=== PATIENT | female | born 1980 | race Caucasian/White ===

== ENCOUNTER 2016-10-21 10:47 | Emergency (ER) | payer MEDICAID ==
--- NOTE | 2016-10-21 11:11 | ER Document Report ---
ED Medical Screen (RME) - General Chief Complaint: Abdominal Pain Stated Complaint: ABDOMINAL PAIN Notes: Recurrent right upper quadrant abdominal pain previously worked up extensively. TRAVEL OUTSIDE OF THE [place] IN LAST 30 DAYS: No - Related Data Allergies/Adverse Reactions: tramadol [Tramadol] Allergy (Severe, Verified 10/21/16 10:54) Anaphylaxis ketorolac tromethamine [From Toradol] Allergy (Mild, Verified 10/21/16 10:54) BREASK OUT IN RASH Past Medical History - Past Medical History Cardiac Medical History: Denies: Hx Coronary Artery Disease, Hx Heart Attack, Hx Hypertension Pulmonary Medical History: Denies: Hx Asthma, Hx Bronchitis, Hx COPD, Hx Pneumonia Neurological Medical History: Denies: Hx Cerebrovascular Accident, Hx Seizures Renal/ Medical History: Reports: Hx Kidney Stones. Denies: Hx Peritoneal Dialysis Musculoskeltal Medical History: Reports Hx Arthritis Psychiatric Medical History: Reports: Hx Anxiety, Hx Attention Deficit Hyperactivity Disorder, Hx Bipolar Disorder, Hx Depression, Hx Schizophrenia Past Surgical History: Reports: Hx Appendectomy, Hx Dilation and Curettage, Hx Gynecologic Surgery - D & C. Denies: Hx Cholecystectomy, Hx Hysterectomy - Immunizations Hx Diphtheria, Pertussis, Tetanus Vaccination: Yes Physical Exam - Vital signs Vitals: Temp Pulse Resp BP Pulse Ox 98.6 F 135 H 20 134/80 H 100 10/21/16 10:50 10/21/16 10:50 10/21/16 10:50 10/21/16 10:50 10/21/16 10:50 Course - Vital Signs Vital signs: Temp Pulse Resp BP Pulse Ox 98.6 F 135 H 20 134/80 H 100 10/21/16 10:50 10/21/16 10:50 10/21/16 10:50 10/21/16 10:50 10/21/16 10:50
[2016-10-21] MEDS ORDERED: ONDANSETRON HCL INJ/PF 4 MG/2 ML SDV IV ONE (11:20)
[2016-10-21] MEDS ORDERED: NORMAL SALINE 1000 ML 1,000 ML IV PRN ×3 (11:20→17:06)
--- NOTE | 2016-10-21 11:23 | ER Document Report ---
ED GI/ - General Chief Complaint: Abdominal Pain Stated Complaint: ABDOMINAL PAIN Time seen by provider: 11:21 Mode of Arrival: Ambulatory Information source: Patient TRAVEL OUTSIDE OF THE [place] IN LAST 30 DAYS: No - HPI Patient complains to provider of: Abdominal pain, Vomiting Onset: Last week Timing/Duration: Gradual, Persistent Quality of pain: Achy Severity at maximum: Moderate Severity in ED: Moderate Pain Level: 4 Location: Epigastric, RUQ Vaginal bleeding (Compared to normal period): None Associated symptoms: Diarrhea, Hematuria, Nausea, Vomiting Exacerbated by: Denies Relieved by: Denies Similar symptoms previously: Yes Recently seen / treated by doctor: No Notes: 10/21/16 11:21 Patient is a 36-year-old female with a history of hepatitis C as well as a history of gallbladder sludge who presents to the emergency room complaining of right upper quadrant pain with nausea vomiting and diarrhea that's been going on for the past week, she denies any blood in her stools or vomit, states it is generally brownish in color or bilious, she reports that eating worsens her symptoms, although she is able to tolerate clear liquids, she reports one episode of hematuria last night, denies any sick contacts, has a history of appendectomy and D&C in the past, denies being today - Related Data Allergies/Adverse Reactions: tramadol [Tramadol] Allergy (Severe, Verified 10/21/16 12:08) Anaphylaxis ketorolac tromethamine [From Toradol] Allergy (Mild, Verified 10/21/16 12:08) BREASK OUT IN RASH Past Medical History - General Information source: Patient - Social History Smoking Status: Current Every Day Smoker Family History: Reviewed & Not Pertinent Patient has suicidal ideation: No Patient has homicidal ideation: No - Past Medical History Cardiac Medical History: Denies: Hx Coronary Artery Disease, Hx Heart Attack, Hx Hypertension Pulmonary Medical History: Denies: Hx Asthma, Hx Bronchitis, Hx COPD, Hx Pneumonia Neurological Medical History: Denies: Hx Cerebrovascular Accident, Hx Seizures Renal/ Medical History: Reports: Hx Kidney Stones. Denies: Hx Peritoneal Dialysis Musculoskeltal Medical History: Reports Hx Arthritis Psychiatric Medical History: Reports: Hx Anxiety, Hx Attention Deficit Hyperactivity Disorder, Hx Bipolar Disorder, Hx Depression, Hx Schizophrenia Past Surgical History: Reports: Hx Appendectomy, Hx Dilation and Curettage, Hx Gynecologic Surgery - D & C. Denies: Hx Cholecystectomy, Hx Hysterectomy - Immunizations Hx Diphtheria, Pertussis, Tetanus Vaccination: Yes Review of Systems - Review of Systems Constitutional: No symptoms reported EENT: No symptoms reported Cardiovascular: No symptoms reported Respiratory: No symptoms reported Gastrointestinal: See HPI Genitourinary: See HPI Female Genitourinary: No symptoms reported Musculoskeletal: No symptoms reported Skin: No symptoms reported Hematologic/Lymphatic: No symptoms reported Neurological/Psychological: No symptoms reported -: Yes All other systems reviewed and negative Physical Exam - Vital signs Vitals: Temp Pulse Resp BP Pulse Ox 98.6 F 135 H 20 134/80 H 100 10/21/16 10:50 10/21/16 10:50 10/21/16 10:50 10/21/16 10:50 10/21/16 10:50 Interpretation: Tachycardic - General General appearance: Appears well, Alert - HEENT Head: Normocephalic, Atraumatic Eyes: Normal Pupils: PERRL - Respiratory Respiratory status: No respiratory distress Chest status: Nontender Breath sounds: Normal Chest palpation: Normal - Cardiovascular Rhythm: Regular Heart sounds: Normal auscultation Murmur: No - Abdominal Inspection: Obese Distension: No distension Bowel sounds: Normal Tenderness: Tender - Right upper quadrant Organomegaly: No organomegaly - Back Back: Normal, Nontender - Extremities General upper extremity: Normal inspection, Nontender, Normal color, Normal ROM , Normal temperature General lower extremity: Normal inspection, Nontender, Normal color, Normal ROM , Normal temperature, Normal weight bearing. No: Nini's sign - Neurological Neuro grossly intact: Yes Cognition: Normal Orientation: AAOx4 Mears Coma Scale Eye Opening: Spontaneous Carlos Coma Scale Verbal: Oriented Carlos Coma Scale Motor: Obeys Commands Mears Coma Scale Total: 15 Speech: Normal Motor strength normal: LUE, RUE, LLE, RLE Sensory: Normal - Psychological Associated symptoms: Normal affect, Normal mood - Skin Skin Temperature: Warm Skin Moisture: Dry Skin Color: Normal Course - Re-evaluation Re-evalutation: 10/21/16 18:10 Patient resting comfortably on stretcher, reports feeling much better, pain is resolved, she does remain mildly tachycardic, however she takes Adderall and has not taken her normal doses of Xanax today, lab and imaging findings were discussed with patient at bedside which are unremarkable, patient will be discharged with pain medication and information for follow-up, advised to return if symptoms worsen, patient acknowledges understanding and agreement with this plan - Vital Signs Vital signs: Temp Pulse Resp BP Pulse Ox 98.6 F 135 H 16 108/74 98 10/21/16 10:50 10/21/16 10:50 10/21/16 15:01 10/21/16 15:01 10/21/16 15:01 - Laboratory Result Diagrams: 10/21/16 11:50 10/21/16 11:50 Laboratory results interpreted by me: 10/21/16 10/21/16 11:50 11:50 Eosinophils % 6.2 H BUN 5 L - Diagnostic Test Radiology reviewed: Image reviewed, Reports reviewed Discharge - Discharge Clinical Impression: Abdominal pain Qualifiers: Abdominal location: right upper quadrant Qualified Code(s): R10.11 - Right upper quadrant pain Condition: Stable Disposition: HOME, SELF-CARE Instructions: Abdominal Pain ([facility]), Oral Narcotic Medication ([facility]) Additional Instructions: Follow up with your primary care provider in one to 2 days. Return to the emergency room immediately if symptoms worsen or any additional concerns. Prescriptions: Oxycodone HCl 5 mg PO Q6 #14 capsule
[2016-10-21 12:02] LABS: ABSOLUTE BASOPHILS # (AUTO) 0.1 10^3/uL (0.0-0.2); ABSOLUTE EOSINOPHILS # (AUTO) 0.6 10^3/uL (0.0-0.6); ABSOLUTE LYMPHOCYTES (AUTO) 2.4 10^3/uL (0.5-4.7); ABSOLUTE MONOCYTES (AUTO) 0.6 10^3/uL (0.1-1.4); ABSOLUTE NEUT (AUTO) 5.8 10^3/uL (1.7-8.2); BASOPHILS % (AUTO) 0.9 % (0-2); EOSINOPHILS % (AUTO) 6.2 % (0-6); HEMATOCRIT 41.4 % (36.0-47.0); HEMOGLOBIN 13.9 g/dL (12.0-15.5); HGB HCT DIFFERENCE 0.3; LYMPHOCYTES % (AUTO) 25.6 % (13-45); MEAN CORPUSCULAR HEMOGLOBIN 28.6 pg (27.0-33.4); MEAN CORPUSCULAR HGB CONC 33.7 g/dL (32.0-36.0); MEAN CORPUSCULAR VOLUME 85 fl (80-97); MONOCYTES % (AUTO) 6.1 % (3-13); RED BLOOD COUNT 4.88 10^6/uL (3.72-5.28); SEGMENTED NEUTROPHILS % (AUTO) 61.2 % (42-78); WHITE BLOOD COUNT 9.5 10^3/uL (4.0-10.5)
[2016-10-21 12:19] LABS: ALANINE AMINOTRANSFERASE 28 U/L (9-52); ALBUMIN 4.2 g/dL (3.5-5.0); ALKALINE PHOSPHATASE 90 U/L (38-126); ANION GAP 11 (5-19); ASPARTATE AMINO TRANSFERASE 26 U/L (14-36); BILIRUBIN,DIRECT 0.1 mg/dL (0.0-0.4); BILIRUBIN,TOTAL 0.5 mg/dL (0.2-1.3); BLOOD UREA NITROGEN 5 mg/dL (7-20); CALCIUM 9.7 mg/dL (8.4-10.2); CARBON DIOXIDE 27 mmol/L (22-30); CHLORIDE 102 mmol/L (98-107); CREATININE RESULT 0.72 mg/dL (0.52-1.25); GLUCOSE 84 mg/dL (75-110); LIPASE 63.7 U/L (23-300); POTASSIUM 4.3 mmol/L (3.6-5.0); SODIUM 140.4 mmol/L (137-145); TOTAL PROTEIN 7.4 g/dL (6.3-8.2)
[2016-10-21] MEDS ORDERED: MORPHINE SULFATE 10 MG/ML INJ IV ONE ×2 (12:50→15:47)
[2016-10-21 13:13] LABS: APPEARANCE,URINE SLIGHTLY-CLOUDY; BILIRUBIN,URINE NEGATIVE (NEGATIVE); GLUCOSE, URINE NEGATIVE (NEGATIVE); KETONES,URINE NEGATIVE (NEGATIVE); LEUKOCYTE ESTERASE,URINE NEGATIVE (NEGATIVE); NITRITE,URINE NEGATIVE (NEGATIVE); PROTEIN,URINE NEGATIVE (NEGATIVE); URINE SPECIFIC GRAVITY 1.005; UROBILINOGEN,URINE NEGATIVE mg/dL (<2.0)
[2016-10-21] MEDS ORDERED: LORAZEPAM INJ 2 MG/1 ML VIAL IV ONE (14:16)
[2016-10-21] MEDS ORDERED: HYDROMORPHONE HCL INJ/PF 2 MG/ML AMPULE IV ONE (17:06)
[2016-10-21] MEDS ORDERED: ALPRAZOLAM 0.5 MG TABLET PO ONE (17:23)
[2016-10-21] MEDS ORDERED: ONDANSETRON ODT 4 MG TAB (6 TAB/DSPK) PO PRN (18:12)
[2016-10-21 18:33] VITALS: BP 112/84
== END 2016-10-21 18:34 | disposition home or self-care (01) ==
LOC: ER 10:47
DX: R10.11 Right upper quadrant pain (principal); R11.2 Nausea with vomiting, unspecified; R19.7 Diarrhea, unspecified; R31.9 Hematuria, unspecified; E66.9 Obesity, unspecified; Z87.442 Personal history of urinary calculi
CPT/HCPCS: 96376; 99284; 96361; 96374; 96375; 36415; 83690; 85025; 81025; 80053; 81001; 76705; J3490; J2270; J1170; J2060; J2405; J7030

== ENCOUNTER → 2016-10-24 | Outpatient (CLI) | payer MEDICAID ==
[2016-10-29 07:42] LABS: HCV ALPHA 2-MACROGLOBULINS QNT 277 mg/dL (110-276); HCV FIBROSIS SCORE 0.04 (0.00-0.21); HCV FIBROSURE ALT P5P 28 IU/L (0-40); HCV FIBROSURE GGT 9 IU/L (0-60); HCV FIBROSURE HAPTOGLOBIN 201 mg/dL (34-200); HCVFIB APOLIPOPROTEIN A-1 130 mg/dL (116-209); NECROINFLAM ACTIVITY GRADE A0-No activity (.); NECROINFLAMM ACTIVITY SCORE 0.09 (0.00-0.17)
== END ==
LOC: OD 09:29
PROVIDERS: ATTEND Internal Medicine Gastroenterology
DX: B18.2 Chronic viral hepatitis C (principal)
CPT/HCPCS: 36415; 82172; 82247; 82977; 83010; 83883; 84460; 87522

== ENCOUNTER → 2016-11-11 | Outpatient (CLI) | payer MEDICAID | LOC: RAD 07:04 | PROVIDERS: ATTEND Internal Medicine Gastroenterology | DX: R10.11 Right upper quadrant pain (principal) | CPT/HCPCS: 78227; A9537; Q9969; J2805 ==

== ENCOUNTER 2016-11-24 16:42 | Emergency (ER) | payer MEDICAID ==
[2016-11-24 19:20] LABS: APPEARANCE,URINE CLEAR; BILIRUBIN,URINE NEGATIVE (NEGATIVE); GLUCOSE, URINE NEGATIVE (NEGATIVE); KETONES,URINE NEGATIVE (NEGATIVE); LEUKOCYTE ESTERASE,URINE NEGATIVE (NEGATIVE); NITRITE,URINE NEGATIVE (NEGATIVE); PROTEIN,URINE NEGATIVE (NEGATIVE); URINE SPECIFIC GRAVITY 1.012; UROBILINOGEN,URINE NEGATIVE mg/dL (<2.0)
[2016-11-24] MEDS ORDERED: ONDANSETRON 4 MG TAB.RAPDIS PO ONE (19:21)
[2016-11-24 19:40] LABS: ABSOLUTE BASOPHILS # (AUTO) 0.1 10^3/uL (0.0-0.2); ABSOLUTE EOSINOPHILS # (AUTO) 0.1 10^3/uL (0.0-0.6); ABSOLUTE MONOCYTES (AUTO) 0.5 10^3/uL (0.1-1.4); ABSOLUTE NEUT (AUTO) 4.4 10^3/uL (1.7-8.2); BASOPHILS % (AUTO) 0.8 % (0-2); EOSINOPHILS % (AUTO) 1.4 % (0-6); HEMATOCRIT 40.3 % (36.0-47.0); HEMOGLOBIN 13.3 g/dL (12.0-15.5); HGB HCT DIFFERENCE -0.4; LYMPHOCYTES % (AUTO) 37.5 % (13-45); MEAN CORPUSCULAR HEMOGLOBIN 28.2 pg (27.0-33.4); MEAN CORPUSCULAR VOLUME 85 fl (80-97); MONOCYTES % (AUTO) 6.6 % (3-13); RED BLOOD COUNT 4.73 10^6/uL (3.72-5.28); RED CELL DISTRIBUTION WIDTH 14.1 % (11.5-14.0); SEGMENTED NEUTROPHILS % (AUTO) 53.7 % (42-78); WHITE BLOOD COUNT 8.1 10^3/uL (4.0-10.5)
[2016-11-24] MEDS ORDERED: OXYCODONE HCL IR 5 MG TABLET PO ONE (19:47)
[2016-11-24 19:55] LABS: ALANINE AMINOTRANSFERASE 26 U/L (9-52); ALBUMIN 3.9 g/dL (3.5-5.0); ALKALINE PHOSPHATASE 72 U/L (38-126); ANION GAP 11 (5-19); ASPARTATE AMINO TRANSFERASE 22 U/L (14-36); BILIRUBIN,DIRECT 0.3 mg/dL (0.0-0.4); BILIRUBIN,TOTAL 0.3 mg/dL (0.2-1.3); BLOOD UREA NITROGEN 13 mg/dL (7-20); CALCIUM 9.5 mg/dL (8.4-10.2); CARBON DIOXIDE 25 mmol/L (22-30); CHLORIDE 105 mmol/L (98-107); CREATININE RESULT 0.83 mg/dL (0.52-1.25); GLUCOSE 96 mg/dL (75-110); LIPASE 92.7 U/L (23-300); POTASSIUM 4.5 mmol/L (3.6-5.0); SODIUM 141.1 mmol/L (137-145)
--- NOTE | 2016-11-24 20:08 | ER Document Report ---
ED GI/ - General Chief Complaint: Abdominal Pain Stated Complaint: ABDOMINAL PAIN Time Seen by Provider: 11/24/16 19:17 Notes: The patient is a 36-year-old female presents with several weeks of right upper quadrant abdominal pain, worsening over the past day. She is following with her GI doctor and has had a negative HIDA scan 2 weeks ago. She is also having nausea. Denies vomiting, diarrhea, constipation, back pain, or urinalysis TRAVEL OUTSIDE OF THE [place] IN LAST 30 DAYS: No - Related Data Allergies/Adverse Reactions: tramadol [Tramadol] Allergy (Severe, Verified 11/24/16 16:50) Anaphylaxis ketorolac tromethamine [From Toradol] Allergy (Mild, Verified 11/24/16 16:50) BREASK OUT IN RASH Past Medical History - General Information source: Patient - Social History Smoking Status: Unknown if Ever Smoked Family History: Reviewed & Not Pertinent Patient has suicidal ideation: No Patient has homicidal ideation: No - Past Medical History Cardiac Medical History: Denies: Hx Coronary Artery Disease, Hx Heart Attack, Hx Hypertension Pulmonary Medical History: Denies: Hx Asthma, Hx Bronchitis, Hx COPD, Hx Pneumonia Neurological Medical History: Denies: Hx Cerebrovascular Accident, Hx Seizures Renal/ Medical History: Reports: Hx Kidney Stones. Denies: Hx Peritoneal Dialysis Musculoskeltal Medical History: Reports Hx Arthritis Psychiatric Medical History: Reports: Hx Anxiety, Hx Attention Deficit Hyperactivity Disorder, Hx Bipolar Disorder, Hx Depression, Hx Schizophrenia Past Surgical History: Reports: Hx Appendectomy, Hx Dilation and Curettage, Hx Gynecologic Surgery - D & C. Denies: Hx Cholecystectomy, Hx Hysterectomy - Immunizations Hx Diphtheria, Pertussis, Tetanus Vaccination: Yes Review of Systems - Review of Systems Notes: REVIEW OF SYSTEMS: CONSTITUTIONAL: -fevers, -chills EENT: -eye pain, -difficulty swallowing, -nasal congestion CARDIOVASCULAR:-chest pain, -syncope. RESPIRATORY: -cough, -SOB GASTROINTESTINAL: +abdominal pain, +nausea, -vomiting, -diarrhea GENITOURINARY: -dysuria, -hematuria MUSCULOSKELETAL: -back pain, -neck pain SKIN: -rash or skin lesions. HEMATOLOGIC: -easy bruising or bleeding. LYMPHATIC: -swollen, enlarged glands. NEUROLOGICAL: -altered mental status or loss of consciousness, -headache, - neurologic symptoms PSYCHIATRIC: -anxiety, -depression. ALL OTHER SYSTEMS REVIEWED AND NEGATIVE. Physical Exam - Vital signs Vitals: Temp Pulse Resp BP Pulse Ox 97.8 F 89 16 106/67 100 11/24/16 16:50 11/24/16 16:50 11/24/16 16:50 11/24/16 16:50 11/24/16 16:50 - Notes Notes: PHYSICAL EXAMINATION: GENERAL: Well-appearing, well-nourished and in no acute distress. HEAD: Atraumatic, normocephalic. EYES: Pupils equal round and reactive to light, extraocular movements intact, sclera anicteric, conjunctiva are normal. ENT: nares patent, oropharynx clear without exudates. Moist mucous membranes. NECK: Normal range of motion, supple without lymphadenopathy LUNGS: Breath sounds clear to auscultation bilaterally and equal. No wheezes rales or rhonchi. HEART: Regular rate and rhythm without murmurs ABDOMEN: Soft, mild RUQ tenderness, normoactive bowel sounds. No guarding, no rebound. No masses appreciated. EXTREMITIES: Normal range of motion, no pitting or edema. No cyanosis. NEUROLOGICAL: Cranial nerves grossly intact. Normal speech, normal gait. Normal sensory and motor exams. PSYCH: Normal mood, normal affect. SKIN: Warm, Dry, normal turgor, no rashes or lesions noted. Course - Re-evaluation Re-evalutation: Patient's ultrasound and labs do not show any acute abnormalities, including no evidence of cholecystitis or cholelithiasis. Her HIDA scan 2 weeks ago did not show any concerning abnormalities. Suspect a chronic pain issue. She is already following with GI. Will also provide her with surgery f/u. Requesting narcotics, but told her that since this is a chronic issue, narcotics cannot be prescribed from the emergency room. - Vital Signs Vital signs: Temp Pulse Resp BP Pulse Ox 97.8 F 89 16 106/67 100 11/24/16 16:50 11/24/16 16:50 11/24/16 16:50 11/24/16 16:50 11/24/16 16:50 - Laboratory Result Diagrams: 11/24/16 19:25 11/24/16 19:25 Laboratory results interpreted by me: 11/24/16 19:25 RDW 14.1 H - Diagnostic Test Radiology reviewed: Image reviewed, Reports reviewed Radiology results interpreted by me: RUQ US: NAD Discharge - Discharge Clinical Impression: Right upper quadrant abdominal pain Condition: Good Disposition: HOME, SELF-CARE Additional Instructions: ABDOMINAL PAIN: There are many causes of abdominal pain. Pain can mean a serious problem requiring surgery (such as appendicitis). It can also be an innocent problem that goes away on its own (such as a viral infection). Often, time must pass to determine the cause of pain. The physician does not feel that hospitalization is necessary, at present. Things may change within the next 24 hours. Call the doctor or come back for re- examination if any problems occur, such as: (1) Pain that becomes more severe, steady, or becomes concentrated in one specific area. Also, pain that is more severe with movement or coughing. (2) Vomiting that persists or becomes more frequent. (3) Blood in the vomitus, urine, or bowel movements. Blood in the stool may have a tarry or black appearance. (4) Shaking chills or fever greater than 100 degrees F. (5) The abdomen becomes more distended or swollen. (6) Bowel movements cease. (7) Failure to improve as expected. NORMAL EXAM AND WORKUP: At this time, your examination and workup show no significant abnormality. No significant abnormal physical findings are noted. All laboratory, EKG, and imaging (x-ray, CT scans, ultrasound) studies that were ordered show no significant abnormality. Although your examination and all studies that were ordered showed no significant abnormal finding, there are no examinations and no studies that are 100% accurate. There is always the possibility that some abnormality could exist and not be detected with physical examination or within the limits and capabilities of laboratory and other studies. You should return or follow up as you were instructed on your visit today for further evaluation if your symptoms do not resolve. FOLLOW-UP CARE: If you have been referred to a physician for follow-up care, call the physician s office for an appointment as you were instructed or within the next two days. If you experience worsening or a significant change in your symptoms, notify the physician immediately or return to the Emergency Department at any time for re-evaluation. Prescriptions: Ondansetron [Zofran Odt 4 mg Tablet] 1 - 2 tab PO Q4H PRN #15 tab.rapdis PRN Reason: For Nausea/Vomiting Referrals: MARLENA KNIGHT MD [ACTIVE STAFF] - Follow up as needed
[2016-11-24 21:35] VITALS: BP 91/54
== END 2016-11-24 20:57 | disposition home or self-care (01) ==
LOC: ER 16:42
DX: R10.11 Right upper quadrant pain (principal); R11.0 Nausea
CPT/HCPCS: 99284; 36415; 83690; 85025; 81025; 80053; 81001; 76705; J3490

== ENCOUNTER → 2016-12-03 | Outpatient (CLI) | payer MEDICAID ==
[2016-12-03 13:08] LABS: PROTHROMBIN TIME 13.5 SEC (11.4-15.4)
== END ==
LOC: OD 12:08
PROVIDERS: ATTEND Physician Assistant Surgical
DX: K75.9 Inflammatory liver disease, unspecified (principal)
CPT/HCPCS: 36415; 85610; 85730

== ENCOUNTER 2016-12-25 09:03 | Day surgery (SDC) | payer MEDICAID ==
[2016-12-18 10:22] LABS: HEMATOCRIT 43.4 % (36.0-47.0); HEMOGLOBIN 14.1 g/dL (12.0-15.5); HGB HCT DIFFERENCE -1.1; MEAN CORPUSCULAR HEMOGLOBIN 27.9 pg (27.0-33.4); MEAN CORPUSCULAR HGB CONC 32.4 g/dL (32.0-36.0); MEAN CORPUSCULAR VOLUME 86 fl (80-97); RED BLOOD COUNT 5.04 10^6/uL (3.72-5.28); RED CELL DISTRIBUTION WIDTH 15.7 % (11.5-14.0); WHITE BLOOD COUNT 9.9 10^3/uL (4.0-10.5)
[2016-12-18 10:44] LABS: ALANINE AMINOTRANSFERASE 24 U/L (9-52); ALBUMIN 4.2 g/dL (3.5-5.0); ALKALINE PHOSPHATASE 89 U/L (38-126); AMYLASE 63 U/L (30-110); ANION GAP 12 (5-19); ASPARTATE AMINO TRANSFERASE 22 U/L (14-36); BILIRUBIN,DIRECT 0.3 mg/dL (0.0-0.4); BILIRUBIN,TOTAL 0.6 mg/dL (0.2-1.3); BLOOD UREA NITROGEN 5 mg/dL (7-20); CALCIUM 9.6 mg/dL (8.4-10.2); CARBON DIOXIDE 27 mmol/L (22-30); CHLORIDE 102 mmol/L (98-107); CREATININE RESULT 0.75 mg/dL (0.52-1.25); GLUCOSE 93 mg/dL (75-110); POTASSIUM 4.2 mmol/L (3.6-5.0); SODIUM 140.5 mmol/L (137-145); TOTAL PROTEIN 7.9 g/dL (6.3-8.2)
[~2016-12-25 09:03] MED LIST: ACETAMINOPHEN 325 MG TABLET PO PRN; CEFAZOLIN 1 GM/D5W RTU 1 GM/50 ML RTUPB IV PRN; LACTATED RINGERS 1000 ML IV PRN; LIDOCAINE 0.5% INJ-PF (5 MG/ML) 50 ML SDV SUBCUT PRN
[2016-12-25] MEDS ORDERED: BUPIVACAINE HCL 0.25 % INJ/PF (2.5 MG/1 ML) 30 ML VIAL ONE (11:09)
[2016-12-25] MEDS ORDERED: PROPOFOL INJ 200 MG/20 ML VIAL IV ONE (11:37)
[2016-12-25] MEDS ORDERED: ACETAMINOPHEN 100 ML IV ONE (11:38)
[2016-12-25] MEDS ORDERED: HYDROMORPHONE HCL INJ/PF 2 MG/ML AMPULE ONE (11:38)
[2016-12-25] MEDS ORDERED: ONDANSETRON HCL INJ/PF 4 MG/2 ML SDV ONE (11:38)
[2016-12-25] MEDS ORDERED: FENTANYL CITRATE INJ/PF 100 MCG/2 ML AMPUL ONE (11:38)
[2016-12-25] MEDS ORDERED: MIDAZOLAM 2 MG/2 ML INJ ONE (11:38)
[2016-12-25] MEDS ORDERED: MORPHINE SULFATE 10 MG/ML INJ IV PRN ×2 (11:59→13:18)
[2016-12-25] MEDS ORDERED: FENTANYL CITRATE INJ/PF 100 MCG/2 ML AMPUL IV PRN ×3 (11:59)
[2016-12-25] MEDS ORDERED: ONDANSETRON HCL INJ/PF 4 MG/2 ML SDV IV PRN (11:59)
[2016-12-25] MEDS ORDERED: PROMETHAZINE HCL INJ 25 MG/1 ML VIAL IV PRN (11:59)
[2016-12-25] MEDS ORDERED: DIPHENHYDRAMINE HCL 50 MG/ML VIAL IV PRN (11:59)
[2016-12-25] MEDS ORDERED: MEPERIDINE HCL/PF INJ 25 MG/1 ML DISP.SYRIN IV PRN (11:59)
[2016-12-25] MEDS ORDERED: OXYCODONE-ACETAMINOPHEN 5-325 MG TABLET PO PRN (13:18)
[2016-12-25] MEDS ORDERED: RINGERS SOLUTION,LACTATED 1,000 ML IV PRN (13:18)
--- NOTE | 2016-12-25 13:18 | Operative Report ---
Operative Report DATE OF SURGERY: 12/25/16 PREOPERATIVE DIAGNOSIS: Chronic cholecystitis POSTOPERATIVE DIAGNOSIS: Same OPERATION: Laparoscopic cholecystectomy SURGEON: MARLENA KNIGHT 1ST REAL ESTATE INVESTMENT ANALYST: STEPHEN TOMPKINS ANESTHESIA: GA TISSUE REMOVED OR ALTERED: 1 gallbladder with contents COMPLICATIONS: None ESTIMATED BLOOD LOSS: 25 cc INTRAOPERATIVE FINDINGS: See below PROCEDURE: The patient was taken to the preop holding area the main operating room where general anesthesia was induced. Arms were abducted, abdomen exposed, prepped and draped sterile fashion. Surgical plan and surgical timeout were conducted Instrumentation was previously set up for laparoscopic cholecystectomy. Supraumbilical vertical incision made benign Veress needle inserted peritoneal cavity and pneumoperitoneum established. Veress needle was removed, 5 mm ports inserted a 5 mm flexible scope was inserted. Under direct visualization 3 additional ports were placed one subxiphoid and 2 in the subcostal position. Findings were significant for no evidence of visceral or vascular injury upon entry of any of the ports We proceeded to place graspers on the gallbladder fundus and infundibulum. The neck of the gallbladder structure with the cystic duct was dissected out. Anatomy here was quite typical in terms of the position of the cystic duct. We opened up the triangle of calot, took a picture, and then while clearing out the fibrous adhesions within the triangle, we got into some arterial bleeding. We therefore clipped the cystic duct proximally 2 times, once distally, and divided the cystic duct. We now placed direct pressure on the bleeding site, repositioned our graspers and gained control of what was the branch point of the cystic artery which was quite short. We placed 2 clips on the artery controlling the hemorrhage which produced about 25 cc of blood loss. Photos were taken. Gallbladder removed from the liver bed using hook cautery dissection. The gallbladder was removed and the patient to the supraumbilical port site incision sent to pathology. Return the peritoneal cavity checked for bleeding there was none. Sponge and counts correct. All ports removed under direct visualization pneumoperitoneum evacuated and wounds closed with 3-0 Vicryl, benzoin and Steri-Strips Patient tolerated procedure well, extubated, taken recovery in stable condition. Emilee SINCLAIR, assisted with exposure, port insertion, and wound closure as no other general surgeon was available to participate.
--- NOTE | 2016-12-25 13:23 | PDOC DISCHARGE SUMMARY ---
Discharge Summary (SDC) - Discharge Final Diagnosis: Chronic cholecystitis Date of Surgery: 12/25/16 Discharge Date: 12/25/16 Condition: Good Treatment or Instructions: [facility] [address], [place] [address] Discharge Instructions: Laparoscopic Surgery 1. General Information: a. DO NOT DRIVE a car or operate dangerous machinery for 3-4 days or while taking narcotic pain pills. b. DO NOT consume alcohol, tranquilizers, sleeping medications or any non- prescribed medications for 24 hours unless approved by your doctor or as long as taking narcotic prescription medications. c. DO NOT make important decisions or sign any important papers for the first 24 hours after surgery. d. When discharged home the same day of surgery have a responsible person with you for the first night. 2. Activity Restrictions: 2 weeks. a. NO heavy lifting, straining abdominal muscles, bending over a lot, yard work, house work, or sports for [address] for 3-4 days or while taking tylenol #3 . c. It is fine to go for walks, up and down steps, ride in a car. d. Elevate your head when sleeping/resting. 3. Treatment: a. You may shower 24 hours after surgery, no baths or swimming for 2 weeks. Remove band-aids or dressings before shower but leave paper strips (steri-strips ) on the skin to fall off on their own. If still on at postoperative visit they will be removed then. b. Drainage of fluid or blood is not unusual from an incision. If occurs, you can clean with peroxide and cotton ball daily and cover with dry gauze until the wound seals. c. If a lot of bleeding occurs, you can hold pressure with a gauze or cloth over the site for 10 minutes and it will usually stop. If bleeding continues you will need to call for possible evaluation in office or emergency room. 4. Medications: a. Tylenol #3 may be taken for pain as needed, one or two tablets every 4-6 hours. Stop the narcotic when able since you cannot take it and drive, and they cause constipation. You may switch to plain Tylenol, Advil or Aleve as you transition from the narcotic. Many adults find good pain relief with Advil 600- 800 mg three times a day with meals. This can cause indigestion, ulcers, and kidney problems with long-term use. b. You should resume all normal medications unless a change is specified by your doctors. c. Begin with clear liquids and may progress to your normal diet if not nauseated. No high fat, high protein foods the day of surgery. Normal diet 6. The following may occur after laparoscopic surgery: a. Shoulder or upper back ache from retained gas that should resolve in 1-2 days b. Soreness and bruising at incision sites will resolve with time. c. Scrotal swelling (labia in women) and bruising is often seen after hernia surgery. d. Sore throat e. Fatigue may last days to weeks. f. Difficulty urinating may occur and may need to come into emergency room for urinary catheter placement. 7. Notify Physician If: a. Worsening or pain not improved with pain medication b. Persistent nausea and vomiting c. Fever above 101 d. Persistent bleeding or swelling at operative site e. Unable to urinate and uncomfortable bladder 6-8 hours after surgery 8..Follow Up Care: a. Schedule a follow up appointment with your doctor for 2 weeks. In the event of any postoperative problems or questions or you may call the office during business hours or the On-Call physician evenings and weekends at [facility]. [facility] I understand the instructions for my postoperative care as described above and a copy has been given to me. Patient/Significant Other Witness Date Prescriptions: Acetaminophen with Codeine [Tylenol #3 Tablet] 1 each PO Q4HP PRN #20 tablet PRN Reason: Discharge Activity: Activity As Tolerated Home Care Assistance: None Needed Report the Following to Your Physician Immediately: Shortness of Breath, Increase in Pain, Fever over 101 Degrees
[2016-12-25] MEDS ORDERED: ALBUTEROL SULFATE 0.083% NEB 2.5 MG/3 ML AMPUL NEB ONE (13:29)
[2016-12-25] MEDS: FENTANYL CITRATE INJ/PF 100 MCG/2 ML AMPUL ONE ×2 (13:35→13:45)
[2016-12-25 15:42] VITALS: BP 123/75
== END 2016-12-25 15:30 | disposition home or self-care (01) ==
LOC: OROUT 09:03
PROVIDERS: ATTEND Surgery
PROC: 0FT44ZZ Resection of Gallbladder, Percutaneous Endoscopic Approach (ICD-10-PCS; principal; 2016-12-25 12:00)
DX: K81.1 Chronic cholecystitis (principal); F17.210 Nicotine dependence, cigarettes, uncomplicated; M19.042 Primary osteoarthritis, left hand; M19.041 Primary osteoarthritis, right hand; K74.60 Unspecified cirrhosis of liver; F32.9 Major depressive disorder, single episode, unspecified; K75.9 Inflammatory liver disease, unspecified; Z88.5 Allergy status to narcotic agent; Z79.899 Other long term (current) drug therapy; Z87.440 Personal history of urinary (tract) infections
CPT/HCPCS: 36415; 82150; 85027; 81025; 80076; 80048; 88304 ×2; 47562; J2250; J0690; J3010; J2270; J1170; J2405; S0020; J2704; J0131; 790

== ENCOUNTER 2017-01-31 15:18 | Emergency (ER) | payer MEDICAID ==
[2017-01-31 15:27] VITALS: BP 135/91
[2017-01-31] MEDS ORDERED: OXYCODONE-ACETAMINOPHEN 5-325 MG TABLET PO ONE (16:28)
--- NOTE | 2017-01-31 16:32 | ER Document Report ---
HPI - HPI Patient complains to provider of: Reinjured right lower leg Onset: This afternoon Onset/Duration: Sudden Quality of pain: Throbbing Severity: Severe Pain Level: 5 Context: Patient states she had orthopedic surgery on her right lower leg on Friday, January 25. She fell today re-injuring her right lower leg, and complains of numbness to the second and third toes. Surgery was done in [place]. Associated Symptoms: None Exacerbated by: Movement Relieved by: Denies Similar symptoms previously: Yes Recently seen / treated by doctor: Yes - ROS ROS below otherwise negative: Yes Systems Reviewed and Negative: Yes All other systems reviewed and negative - CONSTITUTIONAL Constitutional: DENIES: Fever - EENT EENT: DENIES: Congestion - NEURO Neurology: DENIES: Headache - CARDIOVASCULAR Cardiovascular: DENIES: Chest pain - RESPIRATORY Respiratory: DENIES: Trouble Breathing - GASTROINTESTINAL Gastrointestinal: DENIES: Abdominal Pain - URINARY Urinary: DENIES: Dysuria - REPRODUCTIVE Reproductive: DENIES: : - MUSCULOSKELETAL Musculoskeletal: REPORTS: Extremity pain - Right lower leg and foot - DERM Skin Color: Ecchymosis - All right toes and distal foot Past Medical History - General Information source: Patient - Social History Smoking Status: Current Every Day Smoker Cigarette use (# per day): Yes Frequency of alcohol use: None Drug Abuse: None Lives with: Family Family History: Reviewed & Not Pertinent Pulmonary Medical History: Reports: Hx Pneumonia - age 14 Renal/ Medical History: Reports: Hx Kidney Stones Musculoskeltal Medical History: Reports Hx Arthritis - hands Psychiatric Medical History: Reports: Hx Anxiety, Hx Attention Deficit Hyperactivity Disorder, Hx Bipolar Disorder, Hx Depression, Hx Schizophrenia Past Surgical History: Reports: Hx Appendectomy, Hx Dilation and Curettage, Hx Gynecologic Surgery - D & C, Hx Orthopedic Surgery - Immunizations Hx Diphtheria, Pertussis, Tetanus Vaccination: Yes Vertical Provider Document - CONSTITUTIONAL Agree With Documented VS: Yes Exam Limitations: No Limitations General Appearance: WD/WN, No Apparent Distress - INFECTION CONTROL TRAVEL OUTSIDE OF THE [place] IN LAST 30 DAYS: No - HEENT HEENT: Atraumatic, Normocephalic - RESPIRATORY Respiratory: Breath Sounds Normal, No Respiratory Distress O2 Sat by Pulse Oximetry: 97 - CARDIOVASCULAR Cardiovascular: Regular Rate, Regular Rhythm - MUSCULOSKELETAL/EXTREMETIES Musculoskeletal/Extremeties: Eccymosis - Across all right toes and distal foot that are visible undercast. Notes: Vascular and sensation intact to right foot and toes. - NEURO Level of Consciousness: Awake, Alert, Appropriate - DERM Integumentary: Warm, Dry Course - Re-evaluation Re-evalutation: 01/31/17 17:42 X-ray showed no change in hardware post surgery and this was discussed with patient. - Vital Signs Vital signs: Temp Pulse Resp BP Pulse Ox 97.8 F 109 H 14 135/91 H 97 01/31/17 15:23 01/31/17 15:23 01/31/17 15:23 01/31/17 15:23 01/31/17 15:23 Discharge - Discharge Clinical Impression: Contusion of right lower leg Qualifiers: Encounter type: initial encounter Qualified Code(s): S80.11XA - Contusion of right lower leg, initial encounter Condition: Good Disposition: HOME, SELF-CARE Additional Instructions: Continue to elevate leg as previously instructed Return as needed for pain Follow-up with your surgeon Friday for recheck, or call the hospital in [place] for them to contact him in case you have any problems over the weekend. return as needed Prescriptions: Oxycodone HCl/Acetaminophen [Percocet 5-325 mg Tablet] 1 - 2 tab PO ASDIR PRN # 15 tablet PRN Reason:
--- NOTE | 2017-01-31 17:37 | RADIOLOGY REPORT (SQ) ---
EXAM DESCRIPTION: TIBIA FIBULA RIGHT; FOOT RIGHT COMPLETE COMPLETED DATE/TIME: 01/31/2017 5:03 pm REASON FOR STUDY: pilyong fx 7-22 repaired, reinjured today COMPARISON: None. NUMBER OF VIEWS: Two views tibia and fibula. Three views right foot. TECHNIQUE: Two radiographic images acquired of the right tibia and fibula to include the knee and an kle in at least one projection. The AP, lateral, and oblique views of the right foot. LIMITATIONS: Casting material limits evaluation of soft tissues and fine osseous detail. FINDINGS: MINERALIZATION: Normal. BONES: The patient is status post internal fixation of distal fibular and medial malleolar fractures. No definite hardware complication identified. Alignment is standard. Remaining visualized osseous structures of the right tibia and fibula and right foot are grossly normal. Articulations are maint ained. SOFT TISSUES: Obscured by casting material. Skin preston in place. OTHER: No other significant finding. IMPRESSION: EXPECTED POSTSURGICAL CHANGE RELATED TO ORIF OF DISTAL FIBULAR AND MEDIAL MALLEOLAR FRAC TURES. NO HARDWARE COMPLICATION IDENTIFIED. NO ADDITIONAL ACUTE FRACTURE IDENTIFIED INVOLVING THE RIGHT TIBIA/ FIBULA OR RIGHT FOOT. TECHNICAL DOCUMENTATION: JOB ID: [id number] [employer]- All Rights Reserved
== END 2017-01-31 18:51 | disposition home or self-care (01) ==
LOC: ER 15:18
DX: S80.11XA Contusion of right lower leg, initial encounter (principal); W19.XXXA Unspecified fall, initial encounter; R20.0 Anesthesia of skin; Z98.890 Other specified postprocedural states
CPT/HCPCS: 99283

== ENCOUNTER 2017-02-06 11:42 | Emergency (ER) | payer MEDICAID ==
[2017-02-06] MEDS ORDERED: OXYCODONE-ACETAMINOPHEN 5-325 MG TABLET PO ONE (12:13)
--- NOTE | 2017-02-06 12:55 | ER Document Report ---
HPI - HPI Patient complains to provider of: staple removal Onset: Other - 01/25/17 Onset/Duration: Persistent Quality of pain: Achy Pain Level: 5 Context: Patient states that she fractured her ankle on 01/25/2017 while in [facility]. Patient was seen at that facility and had surgery to repair her ankle. Patient was supposed to followed up with orthopedic doctor on 02/03/2017 but missed the appointment as she had ride difficulties getting there. Patient states she prefers to see a local orthopedic doctor and has an appointment set for [address] Dugan. Patient denies any new injury. Patient states that she was supposed to have gotten her preston out and would like them taken out today. Associated Symptoms: Other - Right ankle pain. denies: Fever Exacerbated by: Movement Relieved by: Denies Similar symptoms previously: Yes Recently seen / treated by doctor: Yes - ROS ROS below otherwise negative: Yes Systems Reviewed and Negative: Yes All other systems reviewed and negative - CONSTITUTIONAL Constitutional: DENIES: Fever, Chills - NEURO Neurology: DENIES: Weakness - CARDIOVASCULAR Cardiovascular: DENIES: Chest pain - REPRODUCTIVE Reproductive: DENIES: : - MUSCULOSKELETAL Musculoskeletal: REPORTS: Extremity pain, Swelling - DERM Skin Color: Ecchymosis Skin Problems: Laceration - Stapled laceration Past Medical History - General Information source: Patient - Social History Smoking Status: Current Every Day Smoker Chew tobacco use (# tins/day): No Frequency of alcohol use: Social Drug Abuse: None Occupation: none Family History: Reviewed & Not Pertinent Pulmonary Medical History: Reports: Hx Pneumonia - age 14 Renal/ Medical History: Reports: Hx Kidney Stones. Denies: Hx Peritoneal Dialysis Musculoskeltal Medical History: Reports Hx Arthritis - hands Psychiatric Medical History: Reports: Hx Anxiety, Hx Attention Deficit Hyperactivity Disorder, Hx Bipolar Disorder, Hx Depression, Hx Schizophrenia Past Surgical History: Reports: Hx Appendectomy, Hx Dilation and Curettage, Hx Gynecologic Surgery - D & C, Hx Orthopedic Surgery - Immunizations Hx Diphtheria, Pertussis, Tetanus Vaccination: Yes Vertical Provider Document - CONSTITUTIONAL Agree With Documented VS: Yes Exam Limitations: No Limitations General Appearance: WD/WN, No Apparent Distress - INFECTION CONTROL TRAVEL OUTSIDE OF THE [place].S. IN LAST 30 DAYS: No - HEENT HEENT: Atraumatic, Normocephalic - NECK Neck: Normal Inspection - RESPIRATORY Respiratory: Breath Sounds Normal, No Respiratory Distress O2 Sat by Pulse Oximetry: 100 - CARDIOVASCULAR Cardiovascular: Regular Rate, Regular Rhythm, No Murmur Pulses: Normal: Dorsalis pedis - MUSCULOSKELETAL/EXTREMETIES Musculoskeletal/Extremeties: Tender - Tenderness to right foot and ankle. Patient with intact preston to lateral and medial aspect of ankle. Wound edges approximated without any erythema or signs concerning for infection, Eccymosis - NEURO Level of Consciousness: Awake, Alert, Appropriate Motor/Sensory: No Motor Deficit - DERM Integumentary: Warm, Dry, Laceration - Laceration to medial lateral aspect of right ankle Course - Re-evaluation Re-evalutation: 02/06/17 12:20 Consulted with the transfer center to speak with on-call orthopedic doctor. Patient surgeon Dr. Mcgrath is the orthopedic doctor travel occupational therapist today. 02/06/17 12:54 With transfer center again, Dr. Thomson is in the office today and would prefer to be contacted there. Call placed to his office, Dr. Thomson is currently out to lunch and will return the call when he returns to the office per his office staff. 02/06/17 13:[address] Thomson who recommends staple removal and outpatient follow-up with orthopedic doctor. Patient should be following up with [facility] in [place] and states that patient was given this information. Dr. Thomson also recommends placing patient in posterior stirrup splint and having her continue to be nonweightbearing to this leg 02/06/17 13:[address] Rodriguez - Vital Signs Vital signs: Temp Pulse Resp BP Pulse Ox 98.5 F 108 H 18 149/104 H 100 02/06/17 11:45 02/06/17 11:45 02/06/17 11:45 02/06/17 11:45 02/06/17 11:45 Procedures - Immobilization Right Ankle Pre-Proc Neuro Vasc Exam: Normal Immobilizer type: Ankle stirrup, Short Leg Posterior Performed by: PCT Post-Proc Neuro Vasc Exam: Normal Alignment checked and good: Yes Discharge - Discharge Clinical Impression: Removal of staple, Hx of fracture of ankle, Elevated blood pressure reading Condition: Stable Disposition: HOME, SELF-CARE Instructions: Staple Removal ([facility]), Splint Precautions ([facility]) Additional Instructions: Return immediately for any new or worsening symptoms Followup with your orthopedic care provider, call today to make a followup appointment You should follow up with [facility] hospitalist group in [place] as previously instructed phone: [phone] Prescriptions: Oxycodone HCl/Acetaminophen [Percocet 5-325 mg Tablet] 1 tab PO ASDIR PRN #12 tablet PRN Reason: Forms: Elevated Blood Pressure Referrals: NIMCO MITTAL PA-C [Primary Care Provider] - Follow up as needed RAYMUNDO DUGAN MD [ACTIVE STAFF] - Follow up as needed
[2017-02-06 14:35] VITALS: BP 132/78
== END 2017-02-06 14:05 | disposition home or self-care (01) ==
LOC: ER 11:42
PROC: 2W3QX1Z Immobilization of Right Lower Leg using Splint (ICD-10-PCS; principal; 2017-02-06)
DX: Z48.02 Encounter for removal of sutures (principal); R03.0 Elevated blood-pressure reading, without diagnosis of hypertension; Z87.81 Personal history of (healed) traumatic fracture; Z98.890 Other specified postprocedural states; F17.200 Nicotine dependence, unspecified, uncomplicated
CPT/HCPCS: 99282

== ENCOUNTER 2017-02-15 16:48 | Emergency (ER) | payer MEDICAID ==
--- NOTE | 2017-02-15 17:07 | ER Document Report ---
HPI - HPI Patient complains to provider of: pain right leg Onset: Other Onset/Duration: Constant Quality of pain: Throbbing Severity: Severe Pain Level: 5 Context: Patient suffered a fracture to her right lower leg last month. Was seen us several weeks ago after a secondary injury to the same leg. Patient is scheduled to see orthopedic again next Friday and is out of her pain medications. Would like lower leg rewrapped. Associated Symptoms: None Exacerbated by: Movement Relieved by: Denies Similar symptoms previously: Yes Recently seen / treated by doctor: Yes - ROS ROS below otherwise negative: Yes Systems Reviewed and Negative: Yes All other systems reviewed and negative - CONSTITUTIONAL Constitutional: DENIES: Fever - EENT EENT: DENIES: Congestion - NEURO Neurology: DENIES: Headache - CARDIOVASCULAR Cardiovascular: DENIES: Chest pain - RESPIRATORY Respiratory: DENIES: Trouble Breathing - GASTROINTESTINAL Gastrointestinal: DENIES: Abdominal Pain - URINARY Urinary: DENIES: Dysuria - REPRODUCTIVE LMP: 02/04/17 Reproductive: DENIES: : - MUSCULOSKELETAL Musculoskeletal: REPORTS: Extremity pain - Right ankle - DERM Skin Color: Normal Past Medical History - General Information source: Patient - Social History Smoking Status: Current Every Day Smoker Cigarette use (# per day): Yes Frequency of alcohol use: None Drug Abuse: None Lives with: Family Family History: Reviewed & Not Pertinent Pulmonary Medical History: Reports: Hx Pneumonia - age 14 Renal/ Medical History: Reports: Hx Kidney Stones Musculoskeltal Medical History: Reports Hx Arthritis - hands Psychiatric Medical History: Reports: Hx Anxiety, Hx Attention Deficit Hyperactivity Disorder, Hx Bipolar Disorder, Hx Depression, Hx Schizophrenia Past Surgical History: Reports: Hx Appendectomy, Hx Dilation and Curettage, Hx Gynecologic Surgery - D & C, Hx Orthopedic Surgery - Immunizations Hx Diphtheria, Pertussis, Tetanus Vaccination: Yes Vertical Provider Document - CONSTITUTIONAL Agree With Documented VS: Yes Exam Limitations: No Limitations - INFECTION CONTROL TRAVEL OUTSIDE OF THE [place]. IN LAST 30 DAYS: No - HEENT HEENT: Atraumatic, Normocephalic - RESPIRATORY Respiratory: Breath Sounds Normal, No Respiratory Distress O2 Sat by Pulse Oximetry: 98 - CARDIOVASCULAR Cardiovascular: Regular Rate, Regular Rhythm - GI/ABDOMEN Gastrointestinal: Abdomen Soft - NEURO Level of Consciousness: Awake, Alert, Appropriate - DERM Integumentary: Warm, Dry Notes: Healed surgical site without signs and symptoms of infection. n/v and sensation intact. Right leg rewrapped. Course - Re-evaluation Re-evalutation: 02/15/17 17:17 Patient counseled that no narcotics would be prescribed from the emergency room as she has had multiple visits for same. She must follow-up with her primary care doctor or orthopedic for med refills. - Vital Signs Vital signs: Temp Pulse Resp BP Pulse Ox 98.8 F 98 16 113/68 98 02/15/17 16:50 02/15/17 16:50 02/15/17 16:50 02/15/17 16:50 02/15/17 16:50 Discharge - Discharge Clinical Impression: History of fracture of ankle Right ankle pain Qualifiers: Chronicity: unspecified Qualified Code(s): M25.571 - Pain in right ankle and joints of right foot Condition: Good Disposition: HOME, SELF-CARE Instructions: Use of Crutches ([facility]), Ice & Elevation ([facility]) Additional Instructions: Use the crutches that you already have. Motrin 800 mg every 8 hours as needed for pain Continue to ice and elevate the leg You must follow-up with your primary care doctor or orthopedist for further pain medication refills return as needed Prescriptions: Ibuprofen 800 mg PO TID PRN #20 tablet PRN Reason:
[2017-02-15 17:30] VITALS: BP 95/65
== END 2017-02-15 17:30 | disposition home or self-care (01) ==
LOC: ER 16:48
DX: M25.571 Pain in right ankle and joints of right foot (principal); F17.210 Nicotine dependence, cigarettes, uncomplicated; Z87.442 Personal history of urinary calculi; Z87.81 Personal history of (healed) traumatic fracture
CPT/HCPCS: 99283

== ENCOUNTER 2017-03-14 14:14 | Emergency (ER) | payer MEDICAID ==
--- NOTE | 2017-03-14 15:35 | ER Document Report ---
HPI - HPI Patient complains to provider of: Right ankle pain Onset: Other - 2 weeks Onset/Duration: Persistent Quality of pain: Achy Pain Level: 4 Context: Patient states that she had right ankle surgery on 01/24/2017. Patient states that the wound to the medial aspect of her right ankle opened and started to drain 2 weeks ago. Patient has been treating wound by cleaning it daily with peroxide and dressing with Neosporin. Patient states that wound will not heal and is tender and mildly inflamed. Patient states she has had drainage from the wound. Associated Symptoms: Other - Right ankle pain with drainage from wound. denies : Fever Exacerbated by: Denies Relieved by: Denies Similar symptoms previously: No Recently seen / treated by doctor: No - ROS ROS below otherwise negative: Yes Systems Reviewed and Negative: Yes All other systems reviewed and negative - CONSTITUTIONAL Constitutional: DENIES: Fever, Chills - REPRODUCTIVE Reproductive: DENIES: : - MUSCULOSKELETAL Musculoskeletal: REPORTS: Extremity pain - DERM Skin Color: Normal Notes: Draining wound to right ankle draining wound to right ankle Past Medical History - General Information source: Patient - Social History Smoking Status: Current Every Day Smoker Frequency of alcohol use: None Drug Abuse: None Occupation: none Family History: Reviewed & Not Pertinent Pulmonary Medical History: Reports: Hx Pneumonia - age 14 Renal/ Medical History: Reports: Hx Kidney Stones. Denies: Hx Peritoneal Dialysis Musculoskeltal Medical History: Reports Hx Arthritis - hands Psychiatric Medical History: Reports: Hx Anxiety, Hx Attention Deficit Hyperactivity Disorder, Hx Bipolar Disorder, Hx Depression, Hx Schizophrenia Past Surgical History: Reports: Hx Appendectomy, Hx Dilation and Curettage, Hx Gynecologic Surgery - D & C, Hx Orthopedic Surgery - Immunizations Hx Diphtheria, Pertussis, Tetanus Vaccination: Yes Vertical Provider Document - CONSTITUTIONAL Agree With Documented VS: Yes Exam Limitations: No Limitations General Appearance: WD/WN, No Apparent Distress - INFECTION CONTROL TRAVEL OUTSIDE OF THE [place]. IN LAST 30 DAYS: No - HEENT HEENT: Atraumatic, Normocephalic - NECK Neck: Normal Inspection - RESPIRATORY Respiratory: Breath Sounds Normal, No Respiratory Distress O2 Sat by Pulse Oximetry: 99 - CARDIOVASCULAR Cardiovascular: Regular Rate, Regular Rhythm Pulses: Normal: Dorsalis pedis - BACK Back: Normal Inspection - MUSCULOSKELETAL/EXTREMETIES Musculoskeletal/Extremeties: MAEW, FROM, Tender - Right ankle - NEURO Level of Consciousness: Awake, Alert, Appropriate Motor/Sensory: No Motor Deficit - DERM Integumentary: Warm, Dry, No Rash Adult Front & Back Diagram: 1 - 2 half centimeter opening of medial ankle incision, no obvious drainage, no surrounding erythema, no concern for cellulitis or drainable abscess at this time Course - Re-evaluation Re-evalutation: 03/14/17 15:35 Suspect that patient's lack of wound healing is due to the fact that she has been complaining Neosporin and cleansing wound daily with peroxide. Patient educated on proper wound management. 03/14/17 16:25 No concern for cellulitis at this time. Patient is concerned she states that there has been purulent drainage from the wound. Will cover with Keflex given patient's concern. Strict return precautions given to patient. Patient advised to follow-up with orthopedic doctor for a recheck. - Vital Signs Vital signs: Temp Pulse Resp BP Pulse Ox 97.9 F 102 H 20 125/86 H 99 03/14/17 14:19 03/14/17 14:19 03/14/17 14:19 03/14/17 14:19 03/14/17 14:19 - Diagnostic Test Radiology reviewed: Image reviewed, Reports reviewed Discharge - Discharge Clinical Impression: Wound dehiscence Condition: Stable Disposition: HOME, SELF-CARE Instructions: Cephalexin ([facility]), Dressing Instructions for Open Wounds ([facility]) Additional Instructions: Return immediately for any new or worsening symptoms Followup with your primary care provider, call tomorrow to make a followup appointment Do not use peroxide to clean the wound. Instead use antibacterial soap and water. Prescriptions: Cephalexin Monohydrate [Keflex 500 mg Capsule] 500 mg PO Q6H 5 Days capsule Referrals: NU RAMIREZ MD [ACTIVE STAFF] - Follow up tomorrow
--- NOTE | 2017-03-14 16:24 | RADIOLOGY REPORT (SQ) ---
EXAM DESCRIPTION: ANKLE RIGHT COMPLETE COMPLETED DATE/TIME: 03/14/2017 4:03 pm REASON FOR STUDY: drainage from surgical wound COMPARISON: 01/31/2017. NUMBER OF VIEWS: Three views. TECHNIQUE: AP, lateral, and oblique radiographic images acquired of the right ankle. LIMITATIONS: None. FINDINGS: MINERALIZATION: Normal. BONES: Stable fractures with hardware in the medial malleolus and distal level. JOINTS: No effusions. SOFT TISSUES: No soft tissue swelling. No foreign body. OTHER: No other significant finding. IMPRESSION: STABLE FRACTURES WITH SURGICAL CHANGES AND HARDWARE. NO SIGNIFICANT CHANGE. NO ACUTE F INDINGS. TECHNICAL DOCUMENTATION: JOB ID: [id number] [employer]- All Rights Reserved
[2017-03-14 16:48] VITALS: BP 123/82
== END 2017-03-14 16:41 | disposition home or self-care (01) ==
LOC: ER 14:14
DX: T81.31XA Disruption of external operation (surgical) wound, not elsewhere classified, initial encounter (principal); Y83.8 Other surgical procedures as the cause of abnormal reaction of the patient, or of later complication, without mention of misadventure at the time of the procedure; F17.200 Nicotine dependence, unspecified, uncomplicated
CPT/HCPCS: 87070; 87077; 87186; 87205; 99283

== ENCOUNTER 2017-06-07 17:25 | Emergency (ER) | payer MEDICAID ==
[2017-06-07 17:36] VITALS: BP 134/86
--- NOTE | 2017-06-07 19:30 | ER Document Report ---
ED Extremity Problem, Lower - General Chief Complaint: Ankle Pain Stated Complaint: RIGHT ANKLE PAIN, SWELLING Time Seen by Provider: 06/07/17 19:18 Mode of Arrival: Wheelchair Information source: Patient Notes: 36-year-old female presents to ED for complaint of right ankle pain. She states she broke her ankle and had surgery in February and is been on crutches and a brace since then. States she had her ankle brace on when she fell and rolled her right ankle. She states she sees Dr. Dugan for this and she knows that she got up non-healing fracture to the ankle and needs further surgeries. TRAVEL OUTSIDE OF THE [place] IN LAST 30 DAYS: No - HPI Patient complains to provider of: Injury, Pain, Swelling Location: Ankle Occurred: Just prior to arrival Where: Home Onset/Duration: Sudden Quality of pain: Throbbing Severity: Moderate Pain Level: 4 Context: Other - rolled Recent injury: Yes Associated symptoms: Painful ambulation Exacerbated by: Hanging down, Movement Relieved by: Elevation, Ice, Rest - Related Data Allergies/Adverse Reactions: tramadol [Tramadol] Allergy (Severe, Verified 06/07/17 17:27) Anaphylaxis ketorolac tromethamine [From Toradol] Allergy (Mild, Verified 06/07/17 17:27) BREASK OUT IN RASH Past Medical History - General Information source: Patient - Social History Smoking Status: Current Every Day Smoker Cigarette use (# per day): Yes - 6/day Chew tobacco use (# tins/day): No Smoking Education Provided: Yes - less than 2 min Frequency of alcohol use: None Drug Abuse: None Occupation: Disabled Lives with: Family Family History: CVA, Hyperlipidemia, Hypertension, Malignancy, Other - ALS. denies: Arthritis, CAD, COPD, DM, Thyroid Disfunction Patient has suicidal ideation: No Patient has homicidal ideation: No Pulmonary Medical History: Reports: Hx Pneumonia - age 14 EENT Medical History: Reports: None Neurological Medical History: Reports: None Endocrine Medical History: Reports: None Renal/ Medical History: Reports: Hx Kidney Stones Malignancy Medical History: Reports: None GI Medical History: Reports: None Musculoskeltal Medical History: Reports Hx Arthritis - hands, Reports Hx Musculoskeletal Deformity, Reports Hx Musculoskeletal Trauma Skin Medical History: Reports None Psychiatric Medical History: Reports: Hx Anxiety, Hx Attention Deficit Hyperactivity Disorder, Hx Bipolar Disorder, Hx Depression, Hx Schizophrenia Traumatic Medical History: Reports: Hx Fractures - Right ankle and leg Infectious Medical History: Reports: None Past Surgical History: Reports: Hx Appendectomy, Hx Cholecystectomy, Hx Dilation and Curettage, Hx Orthopedic Surgery - Right ankle - Immunizations Hx Diphtheria, Pertussis, Tetanus Vaccination: Yes Review of Systems - Review of Systems Constitutional: No symptoms reported EENT: No symptoms reported Cardiovascular: No symptoms reported Respiratory: No symptoms reported Gastrointestinal: No symptoms reported Genitourinary: No symptoms reported Female Genitourinary: No symptoms reported Musculoskeletal: Ankle swelling - pain Skin: No symptoms reported Hematologic/Lymphatic: No symptoms reported Neurological/Psychological: No symptoms reported -: Yes All other systems reviewed and negative Physical Exam - Vital signs Vitals: Temp Pulse Resp BP Pulse Ox 98.3 F 108 H 20 134/86 H 100 06/07/17 17:35 06/07/17 17:35 06/07/17 17:35 06/07/17 17:35 06/07/17 17:35 Interpretation: Normal - General General appearance: Appears well, Alert - HEENT Head: Normocephalic, Atraumatic Eyes: Normal Pupils: PERRL - Respiratory Respiratory status: No respiratory distress Chest status: Nontender Breath sounds: Normal Chest palpation: Normal - Cardiovascular Rhythm: Regular Heart sounds: Normal auscultation Murmur: No - Abdominal Inspection: Normal Distension: No distension Bowel sounds: Normal Tenderness: Nontender Organomegaly: No organomegaly - Back Back: Normal, Nontender - Extremities General upper extremity: Normal inspection, Nontender, Normal color, Normal ROM , Normal temperature General lower extremity: Normal color, Normal ROM, Normal temperature. No: Nini's sign Ankle: Tender, Limited ROM - Due to pain, Unable to bear weight - Due to pain, Other - Scars from previous surgeries. No: Abrasion, Deformity, Ecchymosis, Edema, Instability, Positive Carrington's test Foot: Tender, No evidence of FB - Neurological Neuro grossly intact: Yes Cognition: Normal Orientation: AAOx4 [place] Coma Scale Eye Opening: Spontaneous [place] Coma Scale Verbal: Oriented Carlos Coma Scale Motor: Obeys Commands [place] Coma Scale Total: 15 Speech: Normal Motor strength normal: LUE, RUE, LLE, RLE Sensory: Normal - Psychological Associated symptoms: Normal affect, Normal mood - Skin Skin Temperature: Warm Skin Moisture: Dry Skin Color: Normal Course - Re-evaluation Re-evalutation: 06/07/17 20:27 Discussed x-ray with patient and written report given to patient to follow-up with orthopedics. Patient instructed to call Dr. Dugan for follow-up visit. [place] dispense pack given for her ankle pain today where she states she rolled her ankle. X-rays were negative with no acute changes. Alex wrap and stirrup splint applied for comfort and patient has her own crutches. - Vital Signs Vital signs: Temp Pulse Resp BP Pulse Ox 98.3 F 108 H 20 134/86 H 100 06/07/17 17:35 06/07/17 17:35 06/07/17 17:35 06/07/17 17:35 06/07/17 17:35 - Diagnostic Test Radiology reviewed: Image reviewed, Reports reviewed Procedures - Immobilization Right Ankle Time completed: 20:37 Immobilizer type: Alex wrap, Ankle stirrup Performed by: Provider Post-Proc Neuro Vasc Exam: Normal Alignment checked and good: Yes Discharge - Discharge Clinical Impression: Right ankle pain Qualifiers: Chronicity: chronic Qualified Code(s): M25.571 - Pain in right ankle and joints of right foot Condition: Stable Disposition: HOME, SELF-CARE Additional Instructions: right ankle pain after rolling ankle today while she had on her ankle brace. Patient has been under the care of orthopedics Patient has her own crutches ALEX WRAP: A compression dressing (alex wrap) has been placed. This helps hold the area still. It limits swelling and internal bleeding. The wrap should be comfortably snug -- not tight. You should feel a sense of pressure, but not severe pain under the wrap. Unless the physician tells you otherwise, you can adjust the wrap for comfort. If the wrap causes symptoms suggesting it's too tight -- uncomfortable pressure, swelling or discoloration beyond the wrap, numbness, or severe pain - - you must loosen the wrap. If these symptoms don't resolve promptly, return for re-evaluation. ANKLE STIRRUP SPLINT: You are to use an ankle brace called a stirrup splint. This type of brace allows you to place greater stresses on the ankle without risk of re-injury, and is often used for more severe ankle injuries such as avulsion fractures and ligament ruptures. The splint can be worn over a sock or tape. For proper support, wear the splint with a shoe over it. It's important that the splint fit properly. Adjust the heel tension, if needed. If your splint has air bladders, peel back the bottom of each air bladder, then move the Velcro attachment of the heel strap up or down. Air bladder pressure can be adjusted by pulling up the valve at the top, threading the air tube down into the main bladder, then blowing air into the bladder or squeezing it out. The two sides of the stirrup can be moved forward or back on your ankle by changing the attachment of the main straps. If you are unable to use the ankle comfortably in the splint, return for re -evaluation. ICE & ELEVATION: Apply ice packs frequently against the painful area. Many different schedules are recommended, such as "20 minutes on, 20 minutes off" or "one hour ice, two hours rest." If you need to work, you may need to go longer between ice treatments. You should plan to have the area ice packed AT LEAST one- fourth of the time. The ice should be applied over the wrap, tape, or splint, or over a layer of cloth -- not directly against the skin. Some ice bags have a built-in cloth and can be put directly on the skin. Your injured part should be elevated as much as possible over the next 48 hours. Try to keep the injury above the level of the heart. Avoid use of the injured area. Elevation and rest will decrease the swelling. USE OF [id number] IBUPROFEN: Ibuprofen (Advil, Nuprin, Medipren, Motrin IB) is a medication for fever and pain control. In addition, it has anti- inflammatory effects which may be beneficial, especially in the treatment of injuries. It's best to take ibuprofen with food. Persons with ulcer disease or allergy to aspirin should notify their physician of this before taking ibuprofen. Ibuprofen can be given every four to six hours, for a total of four doses daily. Age Pain or fever dose Antiinflammatory dose 6-8 yr 200 mg (1 tab) 200 mg (1 tab) 9-11 yr 200 mg (1 tab) 200-400 mg (1-2 tab) 11-14 yr 200-400 mg (1-2 tab) 400 mg (2 tab) 15-adult 400 mg (2 tab) 600 mg (3 tab) Oral Narcotic Medication You have been given a [place] dispense pack for pain control. This medication is a narcotic. It's best taken with food, as nausea can result if taken on an empty stomach. Don't operate machinery or drive within six hours of taking this medication. Do not combine this medicine with alcohol, or with any medication which can cause sedation (such as cold tablets or sleeping pills) unless you get permission from the physician. Narcotics tend to cause constipation. If possible, drink plenty of fluids and eat a diet high in fiber and fruits. FOLLOW-UP CARE: If you have been referred to a physician for follow-up care, call the physician s office for an appointment as you were instructed or within the next two days. If you experience worsening or a significant change in your symptoms, notify the physician immediately or return to the Emergency Department at any time for re-evaluation. Forms: Elevated Blood Pressure, Smoking Cessation Education Referrals: NIMCO MITTAL PA-C [Primary Care Provider] - Follow up as needed
--- NOTE | 2017-06-07 19:53 | RADIOLOGY REPORT (SQ) ---
EXAM DESCRIPTION: ANKLE RIGHT COMPLETE COMPLETED DATE/TIME: 06/07/2017 7:45 pm REASON FOR STUDY: pain and injury rolled COMPARISON: 03/14/2017 NUMBER OF VIEWS: Three views. TECHNIQUE: AP, lateral, and oblique radiographic images acquired of the right ankle. LIMITATIONS: None. FINDINGS: MINERALIZATION: Normal. BONES: Status post open reduction, internal fixation of distal fibular and tibial fractures. There i s no evidence of hardware fracture, perihardware lucency or migration. No acute fractures. JOINTS: No effusions. SOFT TISSUES: Soft tissue swelling is again noted over the lateral malleolus. OTHER: No other significant finding. IMPRESSION: Status post ORIF of the distal tibia and fibula of without evidence of hardware complica tion. No acute osseous injury. TECHNICAL DOCUMENTATION: JOB ID: [id number] [employer]- All Rights Reserved
[2017-06-07] MEDS ORDERED: HYDROCODONE/ACETAMINOPHEN 5-325 MG 6 TAB/DSPK PO PRN (20:23)
== END 2017-06-07 20:52 | disposition home or self-care (01) ==
LOC: ER 17:25
DX: S82.891G Other fracture of right lower leg, subsequent encounter for closed fracture with delayed healing (principal); X58.XXXD Exposure to other specified factors, subsequent encounter; Z98.890 Other specified postprocedural states; M25.571 Pain in right ankle and joints of right foot; G89.29 Other chronic pain; F17.210 Nicotine dependence, cigarettes, uncomplicated; Z71.6 Tobacco abuse counseling; Z88.8 Allergy status to other drugs, medicaments and biological substances; Z87.892 Personal history of anaphylaxis; Z88.5 Allergy status to narcotic agent
CPT/HCPCS: 99283; 73610; L1902

== ENCOUNTER → 2017-06-19 | Outpatient (CLI) | payer MEDICAID ==
--- NOTE | 2017-06-19 16:01 | RADIOLOGY REPORT (SQ) ---
EXAM DESCRIPTION: NM 3 PHASE BONE SCAN COMPLETED DATE/TIME: 06/19/2017 2:45 pm REASON FOR STUDY: DISPLACED TRIMALLEOLAR FX OF RIGHT LOWER LEG S82.851A DISPLACED TRIMALLEOLAR FRAC TURE OF RIGHT LOWER LEG, COMPARISON: Right ankle films 06/07/2017, 03/14/2017, 01/31/2017 RADIONUCLIDE AND DOSE: 21 millicuries Tc99m MDP. The route of agent administration: Intravenous. ADDITIONAL DRUGS AND DOSES: None. TECHNIQUE: Following injection of the radiopharmaceutical, serial blood flow images acquired. Equil ibrium blood pool images then acquired. Routine delayed images at 3 hour acquired of the areas of cl inical concern with additional focused images as needed. AREA OF INTEREST: Right ankle LIMITATIONS: None. FINDINGS: VASCULAR FLOW IMAGES: Increased blood flow seen to the right foot and ankle BLOOD POOL IMAGES: Increased blood pool activity to the right distal tibia along the medial malleolus and distal metaphysis BONES: On the delayed images, there is increased uptake in the right medial malleolus, and increased uptake at the distal right tibial metaphysis. There is a long segment of increased uptake along the right distal fibula from the mid diaphysis to t he lateral malleolus. Delayed images show mild increased uptake in the talus at the talonavicular joint, and navicular bone . Delayed images also demonstrate minimal increased uptake along the left tarsometatarsal joints and bi lateral plantar calcaneus. OTHER: No other significant finding. IMPRESSION: Bone scan is positive on all 3 phases at the the tibial distal metaphysis and medial mal leolus. Bone scan is positive on the delayed images over the distal fibula adjacent to the fixation plate. COMMENT: Quality measure 147: Current bone scan is compared with any available plain radiographs, p rior bone scans, and CT/MRI. TECHNICAL DOCUMENTATION: JOB ID: [id number] [employer]- All Rights Reserved
== END ==
LOC: RAD 11:21
PROVIDERS: ATTEND Orthopaedic Surgery
DX: S82.851A Displaced trimalleolar fracture of right lower leg, initial encounter for closed fracture (principal); X58.XXXA Exposure to other specified factors, initial encounter
CPT/HCPCS: 78315; A9561; Q9969

== ENCOUNTER 2017-10-15 05:35 | Day surgery (SDC) | payer MEDICAID ==
[~2017-10-15 05:35] MED LIST changes: -ACETAMINOPHEN 325 MG TABLET PO PRN; -CEFAZOLIN 1 GM/D5W RTU 1 GM/50 ML RTUPB IV PRN; +CEFAZOLIN SODIUM 2 GM in NORMAL SALINE 100 ML IV PRN; -LACTATED RINGERS 1000 ML IV PRN; -LIDOCAINE 0.5% INJ-PF (5 MG/ML) 50 ML SDV SUBCUT PRN
[2017-10-15] MEDS ORDERED: MIDAZOLAM 2 MG/2 ML INJ ONE (07:13)
[2017-10-15] MEDS ORDERED: FENTANYL CITRATE INJ/PF 100 MCG/2 ML AMPUL ONE ×2 (07:13→08:39)
[2017-10-15] MEDS ORDERED: PROPOFOL INJ 200 MG/20 ML VIAL IV ONE (07:14)
[2017-10-15] MEDS ORDERED: BUPIVACAINE HCL 0.5%-EPI 1:200000 INJ/PF 30 ML VIAL ONE (07:14)
[2017-10-15] MEDS ORDERED: FENTANYL CITRATE INJ/PF 100 MCG/2 ML AMPUL IV PRN ×2 (07:40)
[2017-10-15] MEDS ORDERED: DIPHENHYDRAMINE HCL 50 MG/ML VIAL IV PRN (07:40)
[2017-10-15] MEDS ORDERED: PROMETHAZINE HCL INJ 25 MG/1 ML VIAL IV PRN ×2 (07:40)
--- NOTE | 2017-10-15 08:28 | Operative Report ---
Operative Report DATE OF SURGERY: 10/15/17 PREOPERATIVE DIAGNOSIS: Retained right ankle hardware, tear of the posterior tibial tendon OPERATION: Hardware removal 2, posterior tibial tendon repair SURGEON: RAYMUNDO FERNANDEZ ANESTHESIA: GA TISSUE REMOVED OR ALTERED: Hardware to pathology ESTIMATED BLOOD LOSS: Minimal PROCEDURE: With the patient supine on the operative table the right lower extremities prepped and draped in sterile fashion. Limb was elevated exsanguination tourniquet inflated 280 mm. The previous longitudinal medial malleolar incision is extended posterior and distally to create a curved incision. The medial malleolar screws are easily identified and removed using appropriate small frag screwdriver. The posterior tibial tendon is inspected and is a longitudinal rent that begins distal to the medial malleolus and extends proximally and posteriorly. This is repaired using a locking suture #2 FiberWire. Attention is now turned to the lateral aspect the ankle. A longitudinal incision was made over the lateral malleolus and sharp dissection was used to expose the underlying plate. 6 screws were removed uneventfully followed by the plate. The wound was irrigated. The tourniquet was deflated. Hemostasis obtained with electrocautery. Wounds are closed with interrupted nylon. A sterile compressive dressing and posterior plaster splint were applied and the patient was returned to PACU in satisfactory condition.
[2017-10-15] MEDS: FENTANYL CITRATE INJ/PF 100 MCG/2 ML AMPUL IV PRN ×2 (08:40→08:45)
[2017-10-15] MEDS ORDERED: MORPHINE SULFATE 10 MG/ML INJ ONE (09:00)
[2017-10-15] MEDS ORDERED: OXYCODONE HCL IR 5 MG TABLET PO PRN (09:18)
[2017-10-15] MEDS ORDERED: ONDANSETRON 4 MG TAB.RAPDIS PO PRN (09:18)
--- NOTE | 2017-10-15 10:33 | RADIOLOGY REPORT (SQ) ---
EXAM DESCRIPTION: NO CHG FLUORO COMPLETE DATE/TIME: 10/15/2017 8:54 am REASON FOR STUDY: RT ANKLE HARDWARE REMOVAL S82.851A DISPLACED TRIMALLEOLAR FRACTURE OF RIGHT LOWER LEG, FINDINGS: Please see combined report for performance of procedure and radiologic supervision and int erpretation. IMPRESSION: Please see combined report for performance of procedure and radiologic supervision and i nterpretation. Reading location - IP/workstation name: [email or web address]
--- NOTE | 2017-10-15 10:33 | RADIOLOGY REPORT (SQ) ---
EXAM DESCRIPTION: ANKLE RIGHT AP/LATERAL COMPLETED DATE/TIME: 10/15/2017 8:54 am REASON FOR STUDY: RT ANKLE HARDWARE REMOVAL S82.851A DISPLACED TRIMALLEOLAR FRACTURE OF RIGHT LOWER LEG, COMPARISON: 06/07/2017 FLUOROSCOPY TIME: 0.1 minutes Spot images saved to PACS. TECHNIQUE: Intra-operative images acquired during surgical procedure to evaluate progress. NUMBER OF IMAGES: 3 LIMITATIONS: None. FINDINGS: Fluoroscopy was provided for intraoperative procedure. Please refer to the operative repo rt for further discussion. IMPRESSION: IMAGE(S) OBTAINED DURING PROCEDURE. COMMENT: Quality ID 145: Final reports for procedures using fluoroscopy that document radiation exp osure indices, or exposure time and number of fluorographic images (if radiation exposure indices are not available) Please consult full operative report of the attending physician for description of the procedure. TECHNICAL DOCUMENTATION: JOB ID: [id number] [employer]- All Rights Reserved Reading location - IP/workstation name: [email or web address]
[2017-10-15 11:29] VITALS: BP 126/90
[2017-10-15] MEDS ORDERED: SUCCINYLCHOLINE CHLORIDE INJ 200 MG/10 ML VIAL ONE (12:07)
[2017-10-15] MEDS ORDERED: ONDANSETRON HCL INJ/PF 4 MG/2 ML SDV ONE (12:07)
== END 2017-10-15 11:15 | disposition home or self-care (01) ==
LOC: OROUT 05:35
PROVIDERS: ATTEND Orthopaedic Surgery
PROC: 0QPG04Z Removal of Internal Fixation Device from Right Tibia, Open Approach (ICD-10-PCS; principal; 2017-10-15 07:30)
DX: S86.111A Strain of other muscle(s) and tendon(s) of posterior muscle group at lower leg level, right leg, initial encounter (principal); X58.XXXA Exposure to other specified factors, initial encounter; Z47.2 Encounter for removal of internal fixation device; J45.990 Exercise induced bronchospasm; F17.210 Nicotine dependence, cigarettes, uncomplicated; Z88.5 Allergy status to narcotic agent; Z79.899 Other long term (current) drug therapy
CPT/HCPCS: 81025; 73600; 20680; J2250; J3490 ×2; J0690; J3010; J2270; J0330; J2405; J2704; 01480

== ENCOUNTER 2018-03-04 16:18 | Emergency (ER) | payer MEDICAID ==
[2018-03-04] MEDS ORDERED: ACETAMINOPHEN 325 MG TABLET PO ONE (16:21)
[2018-03-04 16:32] VITALS: BP 118/88
--- NOTE | 2018-03-04 16:40 | ER Document Report ---
HPI - HPI Patient complains to provider of: Left ankle injury Onset: Just prior to arrival Onset/Duration: Sudden Quality of pain: Sharp Pain Level: 5 Context: Patient states she jumped off of the bed and injured her left ankle. Patient states she felt multiple pops. Associated Symptoms: Other - Left ankle pain Exacerbated by: Standing, Movement, Walking Relieved by: Denies Similar symptoms previously: Yes Recently seen / treated by doctor: No - ROS ROS below otherwise negative: Yes Systems Reviewed and Negative: Yes All other systems reviewed and negative - CONSTITUTIONAL Constitutional: DENIES: Fever - GASTROINTESTINAL Gastrointestinal: DENIES: Nausea - REPRODUCTIVE Reproductive: DENIES: : - MUSCULOSKELETAL Musculoskeletal: REPORTS: Extremity pain, Swelling - DERM Skin Color: Normal Skin Problems: None Past Medical History - General Information source: Patient - Social History Smoking Status: Current Every Day Smoker Smoking Education Provided: Yes Frequency of alcohol use: None Drug Abuse: None Occupation: None Lives with: Family Family History: CVA, Hyperlipidemia, Hypertension, Malignancy, Other - ALS. denies: Arthritis, CAD, COPD, DM, Thyroid Disfunction - Past Medical History Cardiac Medical History: Denies: Hx Coronary Artery Disease, Hx Heart Attack, Hx Hypertension Pulmonary Medical History: Reports: Hx Asthma - USE INHALER, Hx Pneumonia - age 14 Denies: Hx Bronchitis, Hx COPD Neurological Medical History: Denies: Hx Cerebrovascular Accident, Hx Seizures Renal/ Medical History: Reports: Hx Kidney Stones. Denies: Hx Peritoneal Dialysis Musculoskeletal Medical History: Reports Hx Arthritis - hands, Reports Hx Musculoskeletal Deformity, Reports Hx Musculoskeletal Trauma Psychiatric Medical History: Reports: Hx Anxiety, Hx Attention Deficit Hyperactivity Disorder, Hx Bipolar Disorder, Hx Depression, Hx Schizophrenia Traumatic Medical History: Reports: Hx Fractures - Right ankle and leg Past Surgical History: Reports: Hx Appendectomy, Hx Cholecystectomy, Hx Dilation and Curettage, Hx Gynecologic Surgery - D & C, Hx Orthopedic Surgery - Right ankle - Immunizations Hx Diphtheria, Pertussis, Tetanus Vaccination: Yes Vertical Provider Document - CONSTITUTIONAL Agree With Documented VS: Yes Exam Limitations: No Limitations General Appearance: WD/WN, No Apparent Distress - INFECTION CONTROL TRAVEL OUTSIDE OF THE [place] IN LAST 30 DAYS: No - HEENT HEENT: Atraumatic, Normocephalic - NECK Neck: Normal Inspection - RESPIRATORY Respiratory: No Respiratory Distress - CARDIOVASCULAR Pulses: Normal: Dorsalis pedis - MUSCULOSKELETAL/EXTREMETIES Musculoskeletal/Extremeties: MAEW, Tender - Left ankle tenderness to bilateral malleolar area, 1+ edema to lateral malleolus, Edema. negative: Eccymosis - NEURO Level of Consciousness: Awake, Alert, Appropriate Motor/Sensory: No Motor Deficit - DERM Integumentary: Warm, Dry, No Rash Course - Re-evaluation Re-evalutation: 03/04/18 17:05 Patient denied taking any pain medication at home although has an active prescription for hydrocodone for 1 month supply. - Vital Signs Vital signs: Temp Pulse Resp BP Pulse Ox 97.6 F 116 H 16 118/88 H 98 03/04/18 16:31 03/04/18 16:31 03/04/18 16:31 03/04/18 16:31 03/04/18 16:31 - Diagnostic Test Radiology reviewed: Pending, Image reviewed Procedures - Immobilization Left Ankle Pre-Proc Neuro Vasc Exam: Normal Immobilizer type: Alex wrap, Ankle stirrup Performed by: PCT Post-Proc Neuro Vasc Exam: Normal Alignment checked and good: Yes Discharge - Discharge Clinical Impression: Ankle sprain Qualifiers: Encounter type: initial encounter Involved ligament of ankle: unspecified ligament Laterality: left Qualified Code(s): S93.402A - Sprain of unspecified ligament of left ankle, initial encounter Condition: Stable Disposition: HOME, SELF-CARE Instructions: Alex Wrap ([facility]), Ankle Stirrup Splint ([facility]), Use of Crutches ([facility]) , Ice & Elevation ([facility]), Ice Packs ([facility]), Sprained Ankle ([facility]) Additional Instructions: Return immediately for any new or worsening symptoms Followup with your primary care provider, call tomorrow to make a followup appointment Follow-up with your orthopedic surgeon for recheck. Referrals: CHAPO LOUIS DO [ACTIVE STAFF] - Follow up as needed RAYMUNDO FERNANDEZ MD [ACTIVE STAFF] - Follow up as needed
[2018-03-04] MEDS ORDERED: HYDROCODONE/ACETAMINOPHEN 5-325 MG TABLET PO ONE (17:03)
--- NOTE | 2018-03-04 17:06 | RADIOLOGY REPORT (SQ) ---
EXAM DESCRIPTION: ANKLE LEFT COMPLETE COMPLETED DATE/TIME: 03/04/2018 4:50 pm REASON FOR STUDY: fall off bed, L ankle pain COMPARISON: None. NUMBER OF VIEWS: Three views. TECHNIQUE: AP, lateral, and oblique radiographic images acquired of the left ankle. LIMITATIONS: None. FINDINGS: MINERALIZATION: Normal. BONES: No fracture or dislocation. Small plantar calcaneal spur. JOINTS: No effusions. SOFT TISSUES: No soft tissue swelling. No foreign body. OTHER: No other significant finding. IMPRESSION: Calcaneal spur. No acute abnormality. TECHNICAL DOCUMENTATION: JOB ID: [id number] [employer]- All Rights Reserved Reading location - IP/workstation name: [email or web address]
== END 2018-03-04 17:15 | disposition home or self-care (01) ==
LOC: ER 16:18
DX: S93.402A Sprain of unspecified ligament of left ankle, initial encounter (principal); X58.XXXA Exposure to other specified factors, initial encounter; Y92.003 Bedroom of unspecified non-institutional (private) residence as the place of occurrence of the external cause; F17.200 Nicotine dependence, unspecified, uncomplicated; Z87.442 Personal history of urinary calculi; Z90.49 Acquired absence of other specified parts of digestive tract
CPT/HCPCS: 99283; 73610; L1902; J3490

== ENCOUNTER 2018-12-03 00:59 | Emergency (ER) | payer MEDICAID ==
[2018-12-03] MEDS ORDERED: LIDOCAINE 2% VISCOUS SOLN 20 ML UDCUP PO ONE (01:50)
[2018-12-03] MEDS ORDERED: METOCLOPRAMIDE HCL ORAL SOLN 10 MG/10 ML UDCUP PO ONE (01:50)
[2018-12-03] MEDS ORDERED: MAG HYDROX/AL HYDROX/SIMETH SUSP 30 ML UDCUP PO ONE (01:50)
[2018-12-03] MEDS ORDERED: OXYCODONE-ACETAMINOPHEN 5-325 MG TABLET PO ONE (01:50)
--- NOTE | 2018-12-03 01:52 | ER Document Report ---
ED Medical Screen (RME) - General Chief Complaint: Abdominal Pain Stated Complaint: ABDOMINAL PAIN Time Seen by Provider: 12/03/18 01:48 Notes: 38-year-old female coming in today with upper abdominal pain, diarrhea, nausea. History of pancreatitis in the past. It has, however, been some time. History of cholecystectomy. Does not drink. I have treated and performed a rapid initial assessment of this patient. A comprehensive ED assessment and evaluation of the patient, analysis of test results and completion of medical decision making process will be conducted by additional ED providers. PHYSICAL EXAMINATION: GENERAL: Well-appearing, well-nourished and in no acute distress. A&Ox4. Answers questions appropriately. LUNGS: Breath sounds clear to auscultation bilaterally and equal. No wheezes rales or rhonchi. HEART: Regular rate and rhythm without murmurs, rubs, gallops. ABDOMEN: Upper abdominal tenderness Extremities: No cyanosis, clubbing, or edema b/l. NEUROLOGICAL: Normal speech, normal gait. PSYCH: Normal mood, normal affect. TRAVEL OUTSIDE OF THE [place] IN LAST 30 DAYS: No - Related Data Allergies/Adverse Reactions: tramadol [Tramadol] Allergy (Severe, Verified 03/04/18 16:19) Anaphylaxis ketorolac tromethamine [From Toradol] Allergy (Mild, Verified 03/04/18 16:19) BREASK OUT IN RASH Past Medical History - Past Medical History Cardiac Medical History: Denies: Hx Coronary Artery Disease, Hx Heart Attack, Hx Hypertension Pulmonary Medical History: Reports: Hx Asthma - USE INHALER, Hx Pneumonia - age 14 Denies: Hx Bronchitis, Hx COPD Neurological Medical History: Denies: Hx Cerebrovascular Accident, Hx Seizures Renal/ Medical History: Reports: Hx Kidney Stones. Denies: Hx Peritoneal Dialysis Musculoskeltal Medical History: Reports Hx Arthritis - hands, Reports Hx Musculoskeletal Deformity, Reports Hx Musculoskeletal Trauma Psychiatric Medical History: Reports: Hx Anxiety, Hx Attention Deficit Hyperactivity Disorder, Hx Bipolar Disorder, Hx Depression, Hx Schizophrenia Traumatic Medical History: Reports: Hx Fractures - Right ankle and leg Past Surgical History: Reports: Hx Appendectomy, Hx Cholecystectomy, Hx Dilation and Curettage, Hx Gynecologic Surgery - D & C, Hx Orthopedic Surgery - Right ankle - Immunizations Hx Diphtheria, Pertussis, Tetanus Vaccination: Yes History of Influenza Vaccine for 04/2017 - 09/2017 Season: No Physical Exam - Vital signs Vitals: Temp Pulse Resp BP Pulse Ox 98.3 F 89 18 134/90 H 100 12/03/18 01:12/03/18 01:12/03/18 01:12/03/18 01:12/03/18 01:16 Course - Vital Signs Vital signs: Temp Pulse Resp BP Pulse Ox 98.3 F 89 18 134/90 H 100 12/03/18 01:12/03/18 01:12/03/18 01:12/03/18 01:12/03/18 01:16
[2018-12-03 02:34] LABS: APPEARANCE,URINE SLIGHTLY-CLOUDY; BILIRUBIN,URINE NEGATIVE (NEGATIVE); COLOR,URINE YELLOW; GLUCOSE, URINE NEGATIVE (NEGATIVE); KETONES,URINE NEGATIVE (NEGATIVE); LEUKOCYTE ESTERASE,URINE NEGATIVE (NEGATIVE); NITRITE,URINE NEGATIVE (NEGATIVE); PROTEIN,URINE 30 mg/dL (NEGATIVE); URINE SPECIFIC GRAVITY 1.024; UROBILINOGEN,URINE NEGATIVE mg/dL (<2.0)
[2018-12-03 02:38] LABS: ABSOLUTE EOSINOPHILS # (AUTO) 0.1 10^3/uL (0.0-0.6); ABSOLUTE LYMPHOCYTES (AUTO) 3.4 10^3/uL (0.5-4.7); ABSOLUTE MONOCYTES (AUTO) 0.7 10^3/uL (0.1-1.4); ABSOLUTE NEUT (AUTO) 7.5 10^3/uL (1.7-8.2); BASOPHILS % (AUTO) 0.3 % (0-2); EOSINOPHILS % (AUTO) 0.8 % (0-6); HEMATOCRIT 44.3 % (36.0-47.0); HEMOGLOBIN 14.6 g/dL (12.0-15.5); LYMPHOCYTES % (AUTO) 29.1 % (13-45); MEAN CORPUSCULAR VOLUME 88 fl (80-97); MONOCYTES % (AUTO) 5.9 % (3-13); PLATELET COUNT 407 10^3/uL (150-450); RED BLOOD COUNT 5.04 10^6/uL (3.72-5.28); SEGMENTED NEUTROPHILS % (AUTO) 63.9 % (42-78); TOTAL CELLS COUNTED % (AUTO) 100 %; WHITE BLOOD COUNT 11.7 10^3/uL (4.0-10.5)
[2018-12-03 02:50] LABS: ALANINE AMINOTRANSFERASE 17 U/L (9-52); ALBUMIN 4.2 g/dL (3.5-5.0); ALKALINE PHOSPHATASE 81 U/L (38-126); ANION GAP 7 (5-19); ASPARTATE AMINO TRANSFERASE 16 U/L (14-36); BILIRUBIN,DIRECT 0.3 mg/dL (0.0-0.4); BILIRUBIN,TOTAL 0.4 mg/dL (0.2-1.3); BLOOD UREA NITROGEN 6 mg/dL (7-20); CALCIUM 9.7 mg/dL (8.4-10.2); CARBON DIOXIDE 26 mmol/L (22-30); CHLORIDE 102 mmol/L (98-107); GLUCOSE 97 mg/dL (75-110); LIPASE 52.4 U/L (23-300); POTASSIUM 3.7 mmol/L (3.6-5.0); TOTAL PROTEIN 7.4 g/dL (6.3-8.2)
--- NOTE | 2018-12-03 05:47 | ER Document Report ---
ED General - General Chief Complaint: Abdominal Pain Stated Complaint: ABDOMINAL PAIN Time Seen by Provider: 12/03/18 01:48 Notes: 38-year-old female with remote history of pancreatitis, history of cholecystectomy and appendectomy presents to the emergency department with 3 days of epigastric abdominal pain. She states is getting worse as the days go on. She has associated nausea, vomiting, diarrhea. She says she has vomited about 6 times over the last few days for episodes of diarrhea since yesterday. Her last normal bowel movement was 2 days ago. She states that she has had low- grade fevers but she has been taking ibuprofen [id number]. Denies any sick contacts or any changes in diet or eating at any new restaurants. She does not drink. Denies dizziness, lightheadedness. Denies urinary symptoms. No other complaints. TRAVEL OUTSIDE OF THE [place] IN LAST 30 DAYS: No - Related Data Allergies/Adverse Reactions: tramadol [Tramadol] Allergy (Severe, Verified 03/04/18 16:19) Anaphylaxis ketorolac tromethamine [From Toradol] Allergy (Mild, Verified 03/04/18 16:19) BREASK OUT IN RASH Past Medical History - Social History Smoking Status: Never Smoker Chew tobacco use (# tins/day): No Frequency of alcohol use: None Drug Abuse: None Family History: CVA, Hyperlipidemia, Hypertension, Malignancy, Other - ALS. denies: Arthritis, CAD, COPD, DM, Thyroid Disfunction Patient has suicidal ideation: No Patient has homicidal ideation: No - Past Medical History Cardiac Medical History: Denies: Hx Coronary Artery Disease, Hx Heart Attack, Hx Hypertension Pulmonary Medical History: Reports: Hx Asthma - USE INHALER, Hx Pneumonia - age 14 Denies: Hx Bronchitis, Hx COPD Neurological Medical History: Denies: Hx Cerebrovascular Accident, Hx Seizures Renal/ Medical History: Reports: Hx Kidney Stones. Denies: Hx Peritoneal Dialysis Musculoskeletal Medical History: Reports Hx Arthritis - hands, Reports Hx Musculoskeletal Deformity, Reports Hx Musculoskeletal Trauma Psychiatric Medical History: Reports: Hx Anxiety, Hx Attention Deficit Hyperactivity Disorder, Hx Bipolar Disorder, Hx Depression, Hx Schizophrenia Traumatic Medical History: Reports: Hx Fractures - Right ankle and leg Past Surgical History: Reports: Hx Appendectomy, Hx Cholecystectomy, Hx Dilation and Curettage, Hx Gynecologic Surgery - D & C, Hx Orthopedic Surgery - Right ankle - Immunizations Hx Diphtheria, Pertussis, Tetanus Vaccination: Yes Review of Systems - Review of Systems Constitutional: See HPI EENT: No symptoms reported Cardiovascular: No symptoms reported Respiratory: No symptoms reported Gastrointestinal: See HPI Genitourinary: No symptoms reported Female Genitourinary: No symptoms reported Musculoskeletal: No symptoms reported Skin: No symptoms reported Hematologic/Lymphatic: No symptoms reported Neurological/Psychological: No symptoms reported Physical Exam - Vital signs Vitals: Temp Pulse Resp BP Pulse Ox 98.3 F 89 18 134/90 H 100 12/03/18 01:16 12/03/18 01:16 12/03/18 01:16 12/03/18 01:16 12/03/18 01:16 - Notes Notes: PHYSICAL EXAMINATION: Reviewed vital signs and charting by RN GENERAL: Alert, interacts well. No acute distress. HEAD: Normocephalic, atraumatic. EYES: Pupils equal, round, and reactive to light. Extraocular movements intact. ENT: Oral mucosa moist, tongue midline. NECK: Full range of motion. Supple. Trachea midline. LUNGS: Clear to auscultation bilaterally, no wheezes, rales, or rhonchi. No respiratory distress. HEART: Regular rate and rhythm. No murmur ABDOMEN: soft, non-tender. No distention. Bowel sounds present EXTREMITIES: Moves all 4 extremities spontaneously. No edema, No cyanosis. PSYCH: Normal affect, normal mood. SKIN: Warm, dry, normal turgor. No rashes or lesions noted. Course - Re-evaluation Re-evalutation: 12/03/18 05:47 Presentation of generalized, intermittent abdominal pain. Abdominal exam is benign without any focal tenderness. Vitals are normal at the time of arrival. Laboratories are unremarkable without evidence of cystitis, , or leukocytosis. Patient is overall very well in appearance. Based on clinical history and examination I do not suspect an acute appendicitis, tubo-ovarian abscess, related pathology, pelvic inflammatory disease, mesenteric ischemia, or pyelonephritis. Will discharge home with return precautions and followup recommendations. - Vital Signs Vital signs: Temp Pulse Resp BP Pulse Ox 98.3 F 89 18 134/90 H 100 12/03/18 01:16 12/03/18 01:16 12/03/18 01:16 12/03/18 01:16 12/03/18 01:16 - Laboratory Result Diagrams: 12/03/18 02:04 12/03/18 02:04 Laboratory results interpreted by me: 12/03/18 12/03/18 12/03/18 02:04 02:04 02:04 WBC 11.7 H RDW 16.0 H Sodium 135.0 L BUN 6 L Urine Protein 30 H Urine Blood LARGE H Discharge - Discharge Clinical Impression: Abdominal pain Qualifiers: Abdominal location: epigastric Qualified Code(s): R10.13 - Epigastric pain Condition: Good Disposition: HOME, SELF-CARE Instructions: Abdominal Pain ([facility]), Antinausea Medication ([facility]) Additional Instructions: You are seen in the emergency department this morning for abdominal pain, vomiting, diarrhea. Discerning conditions at this time. Lab work was all normal and there is no signs of acute infection. I would stop taking the ibuprofen because of the epigastric discomfort and recommend taking Tylenol in its place for pain control. Also, you develop worsening abdominal pain, intractable vomiting, continue to have profuse diarrhea, please return for evaluation. If you develop high fever, I have any other concerning symptoms please return to the emergency department. If you are unable to pass gas have any type of a bowel movement this could be sign of a small bowel obstruction. Please follow-up with your primary doctor in the next 24 to 48 hours if your symptoms do not improve.
[2018-12-03 06:04] VITALS: BP 118/72
[2018-12-03] MEDS ORDERED: ONDANSETRON ODT 4 MG TAB (6 TAB/ER DISP) PO PRN (06:08)
== END 2018-12-03 06:11 | disposition home or self-care (01) ==
LOC: ER 00:59
DX: R10.13 Epigastric pain (principal); R11.2 Nausea with vomiting, unspecified; R19.7 Diarrhea, unspecified; R50.9 Fever, unspecified; Z90.49 Acquired absence of other specified parts of digestive tract; Z88.6 Allergy status to analgesic agent
CPT/HCPCS: 99284; 36415; 83690; 85025; 81025; 80053; 81001; J3490 ×3

== ENCOUNTER 2019-02-15 18:18 | Emergency (ER) | payer MEDICAID ==
--- NOTE | 2019-02-15 19:29 | RADIOLOGY REPORT (SQ) ---
EXAM DESCRIPTION: ANKLE RIGHT COMPLETE COMPLETED DATE/TIME: 02/15/2019 7:17 pm REASON FOR STUDY: bone tenderness COMPARISON: 06/07/2017 NUMBER OF VIEWS: Three views. TECHNIQUE: AP, lateral, and oblique radiographic images acquired of the right ankle. LIMITATIONS: None. FINDINGS: MINERALIZATION: Normal. BONES: Status post ORIF hardware removal. Progression in tibiotalar degenerative changes. Persisten t appearance of a calcific body within the anterior joint space. No acute fracture or dislocation. No worrisome bone lesions. JOINTS: No effusions. SOFT TISSUES: No soft tissue swelling. No foreign body. OTHER: No other significant finding. IMPRESSION: Status post distal fibula and tibia ORIF hardware with progression in tibiotalar degener ative changes. No evidence of acute osseous injury. TECHNICAL DOCUMENTATION: JOB ID: [id number] [employer]- All Rights Reserved Reading location - IP/workstation name: [email or web address]
[2019-02-15] MEDS ORDERED: OXYCODONE-ACETAMINOPHEN 5-325 MG TABLET PO ONE (20:13)
--- NOTE | 2019-02-15 20:15 | ER Document Report ---
HPI - HPI Time Seen by Provider: 02/15/19 20:04 Pain Level: 4 Notes: Patient is a 38-year-old female presenting to the emergency department with complaints of right ankle pain. Patient reports she stepped off a curb and twisted her ankle. She reports she is able to bear weight but has pain with doing so. She does report a history of trauma to this area with surgical repair. - REPRODUCTIVE Reproductive: DENIES: : Past Medical History - General Information source: Patient - Social History Smoking Status: Current Every Day Smoker Frequency of alcohol use: None Drug Abuse: None Family History: CVA, Hyperlipidemia, Hypertension, Malignancy, Other - ALS. denies: Arthritis, CAD, COPD, DM, Thyroid Disfunction - Past Medical History Cardiac Medical History: Denies: Hx Coronary Artery Disease, Hx Heart Attack, Hx Hypertension Pulmonary Medical History: Reports: Hx Asthma - USE INHALER, Hx Pneumonia - age 14 Denies: Hx Bronchitis, Hx COPD Neurological Medical History: Denies: Hx Cerebrovascular Accident, Hx Seizures Renal/ Medical History: Reports: Hx Kidney Stones. Denies: Hx Peritoneal Dialysis Musculoskeletal Medical History: Reports Hx Arthritis - hands, Reports Hx Musculoskeletal Deformity, Reports Hx Musculoskeletal Trauma Psychiatric Medical History: Reports: Hx Anxiety, Hx Attention Deficit Hyperactivity Disorder, Hx Bipolar Disorder, Hx Depression, Hx Schizophrenia Traumatic Medical History: Reports: Hx Fractures - Right ankle and leg Past Surgical History: Reports: Hx Appendectomy, Hx Cholecystectomy, Hx Dilation and Curettage, Hx Gynecologic Surgery - D & C, Hx Orthopedic Surgery - Right an kle - Immunizations Hx Diphtheria, Pertussis, Tetanus Vaccination: Yes Vertical Provider Document - CONSTITUTIONAL Notes: PHYSICAL EXAMINATION: GENERAL: Well-appearing, well-nourished and in no acute distress. HEAD: Atraumatic, normocephalic. EYES: Pupils equal round extraocular movements intact, conjunctiva are normal. ENT: Nares patent NECK: Normal range of motion LUNGS: No respiratory distress Musculoskeletal: Normal range of motion to right ankle, mild swelling without erythema or ecchymosis noted, strong dorsalis pedis pulse, normal cap refill, normal motor and sensation distal to area of injury. NEUROLOGICAL: Normal speech. PSYCH: Normal mood, normal affect. SKIN: Warm, Dry, normal turgor, no rashes or lesions noted. - INFECTION CONTROL TRAVEL OUTSIDE OF THE [place] IN LAST 30 DAYS: No Course - Re-evaluation Re-evalutation: X-ray was negative for any acute fracture dislocation. Patient will be placed in ankle stirrup, Alex wrap and put on crutches. She was given 1 p.o. dose of pain medication here in the emergency department. She did ask for a prescription for pain medication and I did indicate to her that without a fracture I am unable to prescribe any narcotics and encouraged her to please take ibuprofen. Ankle X-Ray 02/15/19 18:41 IMPRESSION: Status post distal fibula and tibia ORIF hardware with progression in tibiotalar degenerative changes. No evidence of acute osseous injury. - Vital Signs Vital signs: Temp Pulse Resp BP Pulse Ox 97.7 F 91 17 121/74 100 02/15/19 19:10 02/15/19 19:10 02/15/19 19:10 02/15/19 19:10 02/15/19 19:10 Procedures - Immobilization Right ankle Pre-Proc Neuro Vasc Exam: Normal Immobilizer type: Alex wrap, Ankle stirrup, Crutches Performed by: PCT Post-Proc Neuro Vasc Exam: Normal Alignment checked and good: Yes Discharge - Discharge Clinical Impression: Right ankle sprain Qualifiers: Encounter type: initial encounter Involved ligament of ankle: unspecified ligament Qualified Code(s): S93.401A - Sprain of unspecified ligament of right ankle, initial encounter Condition: Stable Disposition: HOME, SELF-CARE Additional Instructions: Your x-ray does not show any acute fracture. You have a sprained ankle. Keep the area elevated, apply ice 20 minutes every 2 hours, and use crutches as needed. You should take ibuprofen 600 mg every 6 hours as needed for pain. Please return if you have worsening pain and swelling, fever greater than 101, you notice spreading redness from the area, or have any other symptoms that are concerning to you. Please follow-up with orthopedic surgery if your symptoms have not improved in the next 2-3 weeks. Referrals: VINCE GERARD, [ACTIVE STAFF] - Follow up as needed
[2019-02-15 20:47] VITALS: BP 123/84
== END 2019-02-15 20:49 | disposition home or self-care (01) ==
LOC: ER 18:18
PROC: 2W3QX1Z Immobilization of Right Lower Leg using Splint (ICD-10-PCS; principal; 2019-02-15)
DX: S93.401A Sprain of unspecified ligament of right ankle, initial encounter (principal); M25.571 Pain in right ankle and joints of right foot; X50.1XXA Overexertion from prolonged static or awkward postures, initial encounter; F17.200 Nicotine dependence, unspecified, uncomplicated; J45.909 Unspecified asthma, uncomplicated
CPT/HCPCS: 73610; 29515; L1902; 99283

== ENCOUNTER 2020-05-03 00:53 | Emergency (ER) | payer MEDICAID ==
--- NOTE | 2020-05-03 01:20 | ER Document Report ---
ED Medical Screen (RME) - General Chief Complaint: Wrist Injury Stated Complaint: POSSIBLE WRIST INJURY Notes: Patient is a 39-year-old white female with a history of bipolar disorder anxiety depression who presents to the emergency department with a chief complaint of right wrist and hand pain that occurred after an injury around 8 PM yesterday. Patient reports that she was carrying a heavy laundry basket when her wrist and hand somehow bended and contorted and unnatural way. She states that she felt a sudden pain in the area. She states the pain has persisted if not worsened since that time. Describes the pain being at the volar radial right wrist and radiating into the right thenar eminence and thumb. Worse with movement of the hand and wrist. Denies any numbness tingling or weakness. I have treated and performed a rapid initial assessment of this patient. A comprehensive ED assessment and evaluation of the patient, analysis of test results and completion of medical decision making process will be conducted by additional ED providers. PHYSICAL EXAMINATION: GENERAL: Well-appearing, well-nourished and in no acute distress. A&Ox4. Answers questions appropriately. TRAVEL OUTSIDE OF THE [place] IN LAST 30 DAYS: No - Related Data Allergies/Adverse Reactions: tramadol [Tramadol] Allergy (Severe, Verified 05/03/20 01:16) Anaphylaxis ketorolac tromethamine [From Toradol] Allergy (Mild, Verified 05/03/20 01:16) BREASK OUT IN RASH Past Medical History - Past Medical History Cardiac Medical History: Denies: Hx Coronary Artery Disease, Hx Heart Attack, Hx Hypertension Pulmonary Medical History: Reports: Hx Asthma - USE INHALER, Hx Pneumonia - age 14 Denies: Hx Bronchitis, Hx COPD Neurological Medical History: Denies: Hx Cerebrovascular Accident, Hx Seizures Renal/ Medical History: Reports: Hx Kidney Stones. Denies: Hx Peritoneal Dialysis Musculoskeltal Medical History: Reports Hx Arthritis - hands, Reports Hx Musculoskeletal Deformity, Reports Hx Musculoskeletal Trauma Psychiatric Medical History: Reports: Hx Anxiety, Hx Attention Deficit Hyperactivity Disorder, Hx Bipolar Disorder, Hx Depression, Hx Schizophrenia Traumatic Medical History: Reports: Hx Fractures - Right ankle and leg Past Surgical History: Reports: Hx Appendectomy, Hx Cholecystectomy, Hx Dilation and Curettage, Hx Gynecologic Surgery - D & C, Hx Orthopedic Surgery - Right ankle - Immunizations Hx Diphtheria, Pertussis, Tetanus Vaccination: Yes Physical Exam - Vital signs Vitals: Temp Pulse Resp BP Pulse Ox 97.9 F 102 H 18 124/80 99 05/03/20 01:07 05/03/20 01:07 05/03/20 01:07 05/03/20 01:07 05/03/20 01:07 Course - Vital Signs Vital signs: Temp Pulse Resp BP Pulse Ox 97.9 F 102 H 18 124/80 99 05/03/20 01:07 05/03/20 01:07 05/03/20 01:07 05/03/20 01:07 05/03/20 01:07
--- NOTE | 2020-05-03 02:02 | RADIOLOGY REPORT (SQ) ---
EXAM DESCRIPTION: CLINICAL HISTORY: 39 years ,Female pain/ injury COMPARISON: None. TECHNIQUE: RIGHT wrist, Three view FINDINGS: No acute fractures or dislocations are identified. No osseous destructive lesions. IMPRESSION: No acute fractures are identified. If symptoms persist, followup is recommended in 7-10 days.
--- NOTE | 2020-05-03 02:06 | RADIOLOGY REPORT (SQ) ---
Right hand radiographs: 05/03/2020 1:04 AM CDT TECHNIQUE: AP, lateral, oblique images of the right hand were obtained. HISTORY: 39-year-old patient with history of right hand pain, trauma. COMPARISON: None available FINDINGS: The carpal arcs appear to be intact. The soft tissues are grossly unremarkable. There are no findings to suggest an acute fracture or subluxation within the right hand. IMPRESSION: There are no findings to suggest an acute fracture or subluxation within the right hand.
[2020-05-03] MEDS ORDERED: HYDROCODONE/ACETAMINOPHEN 5-325 MG TABLET PO ONE (04:00)
--- NOTE | 2020-05-03 04:01 | ER Document Report ---
HPI - HPI Time Seen by Provider: 05/03/20 03:30 Pain Level: 3 Context: Patient is a 39-year-old female who comes emergency department for chief complaint of injury to the right wrist. She states she was picking up a heavy load of laundry when she angled her wrist awkwardly and felt sharp pain. She states she had swelling at the base of the thumb after this. She denies any other complaints. She is not on any blood thinners. She denies . - REPRODUCTIVE Reproductive: DENIES: : Past Medical History - General Information source: Patient - Social History Smoking Status: Current Every Day Smoker Frequency of alcohol use: None Drug Abuse: None Lives with: Family Family History: CVA, Hyperlipidemia, Hypertension, Malignancy, Other - ALS. denies: Arthritis, CAD, COPD, DM, Thyroid Disfunction - Past Medical History Cardiac Medical History: Denies: Hx Coronary Artery Disease, Hx Heart Attack, Hx Hypertension Pulmonary Medical History: Reports: Hx Asthma - USE INHALER, Hx Pneumonia - age 14 Denies: Hx Bronchitis, Hx COPD Neurological Medical History: Denies: Hx Cerebrovascular Accident, Hx Seizures Renal/ Medical History: Reports: Hx Kidney Stones. Denies: Hx Peritoneal Dialysis Musculoskeletal Medical History: Reports Hx Arthritis - hands, Reports Hx Musculoskeletal Deformity, Reports Hx Musculoskeletal Trauma Psychiatric Medical History: Reports: Hx Anxiety, Hx Attention Deficit Hyperactivity Disorder, Hx Bipolar Disorder, Hx Depression, Hx Schizophrenia Traumatic Medical History: Reports: Hx Fractures - Right ankle and leg Past Surgical History: Reports: Hx Appendectomy, Hx Cholecystectomy, Hx Dilation and Curettage, Hx Gynecologic Surgery - D & C, Hx Orthopedic Surgery - Right ankle - Immunizations Hx Diphtheria, Pertussis, Tetanus Vaccination: Yes Vertical Provider Document - CONSTITUTIONAL General Appearance: WD/WN, No Apparent Distress - INFECTION CONTROL TRAVEL OUTSIDE OF THE [place] IN LAST 30 DAYS: No - HEENT HEENT: Atraumatic, Normocephalic - NECK Neck: Normal Inspection - RESPIRATORY Respiratory: Breath Sounds Normal, No Respiratory Distress - CARDIOVASCULAR Cardiovascular: Regular Rate, Regular Rhythm - GI/ABDOMEN Gastrointestinal: Abdomen Soft, Abdomen Non-Tender - BACK Back: Normal Inspection - MUSCULOSKELETAL/EXTREMETIES Musculoskeletal/Extremeties: MAEW, FROM, Tender - Patient with tenderness over the palm of the hand and at the base of the thenar area of the right hand. Pain with range of motion especially of the thumb. Questionable minimal soft tissue swelling. Wrist is unremarkable, snuffbox tenderness normal without tenderness, normal distal neurovascular exam, normal hand, wrist, forearm, upper extremity exam otherwise. - NEURO Level of Consciousness: Awake, Alert, Appropriate Motor/Sensory: No Motor Deficit, No Sensory Deficit - DERM Integumentary: Warm, Dry, No Rash Course - Re-evaluation Re-evalutation: X-rays negative, exam and mechanism reassuring, patient provided with cock-up splint for comfort, discussed care, follow-up, return precautions. Patient states understanding and agreement. - Vital Signs Vital signs: Temp Pulse Resp BP Pulse Ox 97.9 F 102 H 18 124/80 99 05/03/20 01:07 05/03/20 01:07 05/03/20 01:07 05/03/20 01:07 05/03/20 01:07 Procedures - Immobilization Right wrist Immobilizer type: Cock-up Performed by: PCT Post-Proc Neuro Vasc Exam: Normal Alignment checked and good: Yes Discharge - Discharge Clinical Impression: Right wrist injury Qualifiers: Encounter type: initial encounter Qualified Code(s): S69.91XA - Unspecified injury of right wrist, hand and finger(s), initial encounter Condition: Stable Disposition: HOME, SELF-CARE Additional Instructions: Your evaluation shows a sprain of the right wrist with swelling but no fracture, dislocation, or concerning finding is seen otherwise. I recommend that you ice the area 3-4 times a day, 600 mg of ibuprofen every 6 hours, rest of the wrist, and wear the brace for comfort. Swelling and pain should resolve, after symptoms are gone you can go back to normal activity. Follow-up with primary care. Return for any concerning symptoms including severe worsening swelling or pain. Referrals: MORIS BARBOSA NP [Primary Care Provider] - Follow up as needed
[2020-05-03 04:24] VITALS: BP 112/69
== END 2020-05-03 04:26 | disposition home or self-care (01) ==
LOC: ER 00:53
DX: S69.91XA Unspecified injury of right wrist, hand and finger(s), initial encounter (principal); X50.0XXA Overexertion from strenuous movement or load, initial encounter; F17.200 Nicotine dependence, unspecified, uncomplicated
CPT/HCPCS: 99284